=== PATIENT | male | born 1935 | race Caucasian/White ===

== ENCOUNTER → 2017-05-26 | Outpatient (CLI) | payer MEDICARE, OTHER ==
[~2017-05-26] MED LIST: ACET325 PO; ACYC800; ALLO100 PO; ALLO300; ALLO300 PO; ASPI325 PO; ASPI81CH PO; ATOR40TA PO; Amiodarone HCl200 MG PO; BILBERRY PO; CARV25 PO; CEPH500 PO; CLOP75; CLOP75 PO; CODACE30 PO; CYAN1000 PO; Coreg12.5 MG PO; Crestor20 MG PO; DIGO.125 PO; DOCU100 PO; DULO60 PO; FENO145 PO; FISH1000 PO; FOLI1 PO; FURO20 PO; GABA100 PO; GLIM2 PO; GLIM4; GLIM4 PO; HALO2 PO; HYDACE5325 PO; HYDR1TAB94 PO; LAVAP17G PO; LIDO5TP TOP; LOPE2C PO; LOSA25 PO; LOSA50 PO; MAGOXI400 PO; METF500 PO; METF500C; METO50ER; MILK THISTLE200 MG PO; MORP15ER PO; MULVITMIND PO; Milk Of Ma400 MG/5 M PO; Milk Thistle500 MG PO; Norco 5-325 Ta1 EACH PO; OLME20; OLME20 PO; PANT40 PO; PARO20; PARO20 PO; PIRO10; PIRO10 PO; POTCHL20ER PO; PROM25 PO; RAMI2.5 PO; RANI150 PO; ROSI4; ROSU10TA; ROSU10TA PO; SITA100T2 PO; SITA25T2; SITA50T2 PO; SULAR; TAMS.4ER PO; THIA100 PO; Tylenol325 MG PO; Valtrex1000 MG PO; Vitamin B Comple1 EA PO; WARF4 PO; XARELTO10 MG; XARELTO15 MG PO; XARELTO20 MG PO; Zofran Odt4 MG SL
[2017-05-26 19:06] LABS: Source, Urine Catheter
[2017-05-26 19:21] LABS: Amorphous Light (0-Heavy); Bacteria Mod /hpf; Red Blood Cells, Urine 25-50 /hpf (0-2); Squamous Epithelial Cells Mod /hpf (Few)
== END | disposition home or self-care (01) ==
LOC: LAB EV 19:03
PROVIDERS: Physician Assistant
DX: R82.99 Other abnormal findings in urine (principal)
CPT/HCPCS: 81015; 87077; 87086; 87186

== ENCOUNTER 2017-07-24 16:02 | Observation (INO) | payer MEDICARE, OTHER ==
[~2017-07-24] VITALS: Ht 180.3 cm; Wt 90.7 kg
[~2017-07-24 16:02] MED LIST changes: -Amiodarone HCl200 MG PO; -CEPH500 PO; -HYDR1TAB94 PO; -METO50ER; -Milk Of Ma400 MG/5 M PO
[2017-07-24 16:40] LABS: Calcium, Ionized (POC) 1.21 mmol/L (1.10-1.46); Chloride (POC) 104 mmol/L (98-108); Creatinine (POC) 1.2 mg/dL (0.8-1.3); Glucose (ISTAT POC) 222 mg/dL (70-99); Hemoglobin (POC) 13.3 g/dL (13.5-17.5); Potassium (POC) 4.3 mmol/L (3.5-5.5); Sodium (POC) 143 mmol/L (135-148); Total CO2 (POC) 27 mmol/L (21-32)
[2017-07-24] MEDS ORDERED: Amiodarone HCl200 MG PO (17:35)
[2017-07-25] MEDS ORDERED: ACET325 PO (17:55)
[2017-07-25] MEDS ORDERED: HYDR1TAB94 PO (17:56)
[2017-07-25] MEDS ORDERED: DOCU100 PO (17:57)
[2017-07-25] MEDS ORDERED: Milk Of Ma400 MG/5 M PO (17:58)
[2017-07-25] MEDS ORDERED: CEPH500 PO (17:59)
== END 2017-07-25 18:37 | disposition home or self-care (01) ==
LOC: ER 16:02 → SURS 16:03 → ER 17:45 → SURS 17:45
PROVIDERS: Emergency Medicine; Orthopaedic Surgery
PROC: 0X6R0Z1 Detachment at Left Middle Finger, High, Open Approach (ICD-10-PCS; 2017-07-24)
PROC: 0X6W0Z1 Detachment at Left Little Finger, High, Open Approach (ICD-10-PCS; principal; 2017-07-24 18:00)
DX: S68.117A Complete traumatic metacarpophalangeal amputation of left little finger, initial encounter (principal); I48.2 Chronic atrial fibrillation; I25.10 Atherosclerotic heart disease of native coronary artery without angina pectoris; I13.0 Hypertensive heart and chronic kidney disease with heart failure and stage 1 through stage 4 chronic kidney disease, or unspecified chronic kidney disease; E11.22 Type 2 diabetes mellitus with diabetic chronic kidney disease; N18.3 Chronic kidney disease, stage 3 (moderate); I50.9 Heart failure, unspecified; R26.9 Unspecified abnormalities of gait and mobility; R53.1 Weakness; G81.91 Hemiplegia, unspecified affecting right dominant side; K21.9 Gastro-esophageal reflux disease without esophagitis; F32.9 Major depressive disorder, single episode, unspecified; Z86.73 Personal history of transient ischemic attack (TIA), and cerebral infarction without residual deficits; Z95.0 Presence of cardiac pacemaker; Z98.890 Other specified postprocedural states; Z79.01 Long term (current) use of anticoagulants; Z79.84 Long term (current) use of oral hypoglycemic drugs; Z79.899 Other long term (current) drug therapy; Z85.51 Personal history of malignant neoplasm of bladder; Z87.891 Personal history of nicotine dependence; W31.2XXA Contact with powered woodworking and forming machines, initial encounter; Y92.89 Other specified places as the place of occurrence of the external cause; Y99.0 Civilian activity done for income or pay
CPT/HCPCS: 36415; 73120; 80047; 82947; 85014; 88300; 90471; 90714; 96374; 97110; 97162; 97530; 99285; G0378; G8978; G8979; J0690; J2250; J3010; J7030

== ENCOUNTER 2017-12-21 14:08 | Day surgery (SDC) | payer MEDICARE, OTHER ==
[~2017-12-21] VITALS: Ht 180.3 cm; Wt 86.9 kg
[~2017-12-21 14:08] MED LIST changes: +Amiodarone HCl200 MG PO; +CEPH500 PO; +HYDR1TAB94 PO; +Milk Of Ma400 MG/5 M PO
[2017-12-21] MEDS ORDERED: METO50ER (14:37)
== END 2017-12-21 16:09 | disposition home or self-care (01) ==
LOC: ORSCSDS 14:08
PROVIDERS: Internal Medicine Gastroenterology
PROC: 0DJ08ZZ Inspection of Upper Intestinal Tract, Via Natural or Artificial Opening Endoscopic (ICD-10-PCS; principal; 2017-12-21 15:15)
PROC: 0D758ZZ Dilation of Esophagus, Via Natural or Artificial Opening Endoscopic (ICD-10-PCS; principal; 2017-12-21 15:15)
DX: R13.12 Dysphagia, oropharyngeal phase (principal); K22.2 Esophageal obstruction; R05 Cough; Z95.0 Presence of cardiac pacemaker; E11.9 Type 2 diabetes mellitus without complications; I48.91 Unspecified atrial fibrillation; Z79.01 Long term (current) use of anticoagulants; Z79.82 Long term (current) use of aspirin; Z79.84 Long term (current) use of oral hypoglycemic drugs; Z79.899 Other long term (current) drug therapy
CPT/HCPCS: 82947; J2250; J7120

== ENCOUNTER 2018-05-05 14:41 | Inpatient (IN) | payer MEDICARE, OTHER ==
[~2018-05-05] VITALS: Ht 180.3 cm; Wt 84.8 kg
[~2018-05-05 14:41] MED LIST changes: -METF500C; +METF500C PO; +METO50ER PO
[2018-05-05 16:39] LABS: BASOPHILS ABSOLUTE AUTO 0.05 K/mm3 (0.00-0.23); BASOPHILS PERCENT AUTO 1 % (0-2); EOSINOPHILS ABSOLUTE AUTO 0.31 K/mm3 (0.00-0.68); EOSINOPHILS PERCENT AUTO 4 % (0-6); Hematocrit 41.5 % (37.0-53.0); Hemoglobin 13.3 g/dL (13.5-17.5); IMMATURE GRAN ABSOLUTE AUTO 0.03 K/mm3 (0.00-0.10); IMMATURE GRAN PERCENT AUTO 0 % (0-1); LYMPHOCYTES ABSOLUTE AUTO 2.68 K/mm3 (0.84-5.20); LYMPHOCYTES PERCENT AUTO 33 % (21-46); MONOCYTES ABSOLUTE AUTO 0.78 K/mm3 (0.16-1.47); MONOCYTES PERCENT AUTO 10 % (4-13); Mean Corpuscular HGB 31.3 pg (26.0-34.0); Mean Corpuscular Volume 98 fL (80-100); Mean Platelet Volume 10.5 fL (9.1-12.4); NEUTROPHILS ABSOLUTE AUTO 4.22 K/mm3 (1.96-9.15); NEUTROPHILS PERCENT AUTO 52 % (41-73); Platelet Count 252 K/mm3 (150-400); RDW Coefficient Variation 14.2 % (11.7-14.2); RDW Standard Deviation 51.1 fL (35.1-46.3); Red Blood Cell Count 4.25 M/mm3 (4.30-5.90); White Blood Cell Count 8.07 K/mm3 (4.00-11.30)
[2018-05-05 17:00] LABS: Alanine Aminotransfer (ALT/SGP 29 U/L (12-78); Albumin, Blood 3.7 g/dL (3.4-5.0); Albumin/Globulin Ratio 1.1 (0.8-1.8); Alk Phos 33 U/L (50-136); Anion Gap 6 mmol/L (6-16); Aspartate Aminotrans (AST/SGOT 23 U/L (12-37); Bilirubin, Total 0.7 mg/dL (0.1-1.0); Blood Urea Nitrogen 19 mg/dL (8-24); Bun/Creatinine Ratio 17.1 (12.0-20.0); CO2, Blood 26 mmol/L (21-32); Chloride, Blood 110 mmol/L (98-108); Creatinine, Blood 1.11 mg/dL (0.60-1.20); Globulin, Blood 3.4 g/dL (2.2-4.0); Glomerular Filtration Rate >60 (60-); Glucose, Blood 73 mg/dL (70-99); Potassium, Blood 3.8 mmol/L (3.5-5.5); Sodium, Blood 142 mmol/L (136-145); Total Protein, Blood 7.1 g/dL (6.4-8.2)
--- NOTE | 2018-05-05 22:54 | NUR ---
ASSUMING CARE OF PT. THIS RN AGREES WITH PRIOR RN ASSESSMENTS AND CHARTING.
[2018-05-06 04:35] LABS: BASOPHILS ABSOLUTE AUTO 0.06 K/mm3 (0.00-0.23); BASOPHILS PERCENT AUTO 1 % (0-2); EOSINOPHILS ABSOLUTE AUTO 0.34 K/mm3 (0.00-0.68); EOSINOPHILS PERCENT AUTO 5 % (0-6); Hematocrit 40.8 % (37.0-53.0); Hemoglobin 12.6 g/dL (13.5-17.5); IMMATURE GRAN ABSOLUTE AUTO 0.01 K/mm3 (0.00-0.10); IMMATURE GRAN PERCENT AUTO 0 % (0-1); LYMPHOCYTES ABSOLUTE AUTO 2.83 K/mm3 (0.84-5.20); LYMPHOCYTES PERCENT AUTO 38 % (21-46); MONOCYTES ABSOLUTE AUTO 0.64 K/mm3 (0.16-1.47); MONOCYTES PERCENT AUTO 9 % (4-13); Mean Corpuscular HGB 30.7 pg (26.0-34.0); Mean Corpuscular HGB Conc 30.9 g/dL (31.5-36.5); Mean Corpuscular Volume 99 fL (80-100); Mean Platelet Volume 10.5 fL (9.1-12.4); NEUTROPHILS ABSOLUTE AUTO 3.65 K/mm3 (1.96-9.15); NEUTROPHILS PERCENT AUTO 49 % (41-73); Platelet Count 240 K/mm3 (150-400); RDW Coefficient Variation 14.2 % (11.7-14.2); RDW Standard Deviation 51.5 fL (35.1-46.3); Red Blood Cell Count 4.11 M/mm3 (4.30-5.90); White Blood Cell Count 7.53 K/mm3 (4.00-11.30)
[2018-05-06 04:55] LABS: Anion Gap 6 mmol/L (6-16); Blood Urea Nitrogen 17 mg/dL (8-24); CO2, Blood 27 mmol/L (21-32); Calcium, Blood 8.7 mg/dL (8.5-10.1); Chloride, Blood 110 mmol/L (98-108); Creatinine, Blood 1.06 mg/dL (0.60-1.20); Glomerular Filtration Rate >60 (60-); Glucose, Blood 116 mg/dL (70-99); Potassium, Blood 3.8 mmol/L (3.5-5.5); Prostate Specific Antigen 0.177 ng/mL (0.000-4.000); Sodium, Blood 143 mmol/L (136-145)
--- NOTE | 2018-05-06 07:43 | NUR ---
SHIFT SUMMARY: PT A&O X 4, COOPERATIVE AND PLEASANT c CARE. C/O OF LOW BACK PAIN 1X THIS SHIFT, TREATED c 10 MG NORCO PO. EXCELLENT RELIEF PROVIDED. NO OTHER ACUTE CHANGES TO REPORT. WILL CONT TO MONITOR AND PROVIDFE CARE.
--- NOTE | 2018-05-06 17:14 | NUR ---
SHIFT SUMMARY PAIN HAS BEEN MANAGED WITH PO PAIN MEDICATION THIS SHIFT. PT HAS MINIMAL PAIN WHEN AT REST; PAIN INCREASES WITH ACTIVITY. HE IS A 2 PERSON MAX ASSIST FOR TRANFERS. PT STARTED ON STEROIDS AFTER CT RESULTS. VSS. PLAN FOR DC TO SNF WHEN PT IS READY. WILL CONTINUE TO MONITOR UNTIL REPORT TO ONCOMING RN.
--- NOTE | 2018-05-06 18:34 | NUR ---
PT HAS VOIDED X1 THIS SHIFT. PT WAS PROVIDED WITH NECTAR THICK WATER. PT ENCOURAGED TO DRINK MORE FLUIDS.
--- NOTE | 2018-05-07 06:31 | NUR ---
PT VSS T/O NIGHT. PAIN MGD PER EMAR W/REP RELIEF. PT REP PAIN JESSICA WHEN AT REST, INC W/MVMT. PT DOES SHIFT SELF IN BED, ASSISTED W/REPOSITIONING PRN T/O NIGHT. PO INTAKE ENC, FLUIDS OFFERRED W/ROUNDINGS. PT INCONTINENT, ATTENDS HCANGED PRN. PT REP HAVING UNUSUAL DREAMS, DID AWAKE CONFUSED X1, REOIRENTED EASILY. PT USING CALL LIGHT FOR ASSISTANCE, BED ALARM ON FOR SAFETY, WILL CONT TO MONITOR UNTIL REP GIVEN TO ONCOMING RN.
--- NOTE | 2018-05-07 18:45 | NUR ---
SHIFT SUMMARY PAIN HAS BEEN MANAGED WITH PO PAIN MEDICATION. PAIN DOES NOT APPEAR TO HAVE IMPROVED SINCE STEROID WAS STARTED. PT IS STILL A 2 ASSIST AND WAS UNABLE TO STAND TO GET OOB TODAY. PT TOLERATING NECTAR THICK LIQUIDS, ENCOURAGED TO TAKE FLUIDS. VSS. WILL CONTINUE TO MONITOR UNTIL REPORT TO ONCOMING RN.
--- NOTE | 2018-05-08 04:59 | NUR ---
PT VSS T/O NIGHT. PAIN MGD PER EMAR W/REP RELIEF. PT REP PAIN INC GREATLY W/MVMT. PT DOES TURN AND SHIFT SELF IN BED. PO INTAKE MINIMAL, ENC W/ROUNDING T/O NIGHT. BLADDER SCAN DOEN THIS AM; READING >525. PT DECLINING I/O CATH REQ TO WAIT UNTIL AWAKE THIS AM TO ATTEMPT TO VOID ON OWN. PT A/O THIS SHIFT IS USING CALL LIGHT FOR ASSISTANCE, BED ALARM ON FOR SAFETY. WILL CONT TO MONITOR UNTIL REP GIVEN TO ONCOMING RN.
--- NOTE | 2018-05-08 13:29 | NUR ---
DR AUSTIN HERE TO SEE PT.
--- NOTE | 2018-05-08 15:08 | NUR ---
NM REPORTS WILL COMPLETE SCAN ON TUESDAY. DR AUSTIN NOTIFIED. DISCUSSED THERAPY WITH DR MATILDE REPORTS TO CONTINUE WITH THERAPY. THERAPY NOTIFIED.
--- NOTE | 2018-05-08 18:27 | NUR ---
SHIFT SUMMARY PT EATING AND DRINKING. PT BEEN ASSISTED WITH ADL'S PRN. PT IN ATTENDS. PT HAS LIDOCAINE PATCHES TO LUMBAR. PT BEEN REPOSITIONING SELF IN BED WELL WITH ASSIST FROM STONE [employer]ODUCT FABRICATOR AND RN KIARAT TIMES TODAY. DR MUNOZ TO SEE PT. IMAGING TO BE COMPLETED TUESDAY PER IMAGING, DR AUSTIN AWARE. PT VOIDING. MED WITHOUT DIFFICULTY WHOLE WITH PUDDING PER PT REQ. ALARM IN PLACE.
--- NOTE | 2018-05-09 04:36 | NUR ---
SHIFT SUMMARY PT A&O X4 T/O SHIFT. NO ACUTE CHANGES. PT ADMITTED WITH C/O CHRONIC PAIN IN LOW BACK/HIP. PT DENIES PAIN AT RESST; LIDOCAINE PATCHES REMOVED FROM LOW BACK PER EMAR. PPPX4; EXT PWD. NO REDNESS TO SKIN NOTED. CHRONIC HEARING CARE PRACTITIONER; PT REPOSITIONED SELF IN BED; ASSISTED W/ BOOST IN BED. CALL LIGHT IN REACH. BED ALARM AND SIDE RAILS X3.
[2018-05-09 04:44] LABS: BASOPHILS ABSOLUTE AUTO 0.01 K/mm3 (0.00-0.23); BASOPHILS PERCENT AUTO 0 % (0-2); EOSINOPHILS PERCENT AUTO 0 % (0-6); Hematocrit 36.4 % (37.0-53.0); Hemoglobin 11.6 g/dL (13.5-17.5); IMMATURE GRAN ABSOLUTE AUTO 0.12 K/mm3 (0.00-0.10); IMMATURE GRAN PERCENT AUTO 1 % (0-1); LYMPHOCYTES ABSOLUTE AUTO 1.34 K/mm3 (0.84-5.20); LYMPHOCYTES PERCENT AUTO 8 % (21-46); MONOCYTES ABSOLUTE AUTO 0.82 K/mm3 (0.16-1.47); MONOCYTES PERCENT AUTO 5 % (4-13); Mean Corpuscular HGB Conc 31.9 g/dL (31.5-36.5); Mean Corpuscular Volume 97 fL (80-100); Mean Platelet Volume 10.8 fL (9.1-12.4); NEUTROPHILS PERCENT AUTO 86 % (41-73); Platelet Count 264 K/mm3 (150-400); RDW Coefficient Variation 14.3 % (11.7-14.2); RDW Standard Deviation 51.3 fL (35.1-46.3); Red Blood Cell Count 3.74 M/mm3 (4.30-5.90); White Blood Cell Count 15.89 K/mm3 (4.00-11.30)
[2018-05-09 04:58] LABS: Alanine Aminotransfer (ALT/SGP 39 U/L (12-78); Albumin, Blood 3.3 g/dL (3.4-5.0); Albumin/Globulin Ratio 1.1 (0.8-1.8); Alk Phos 36 U/L (50-136); Anion Gap 8 mmol/L (6-16); Aspartate Aminotrans (AST/SGOT 37 U/L (12-37); Bilirubin, Total 0.4 mg/dL (0.1-1.0); Blood Urea Nitrogen 28 mg/dL (8-24); CO2, Blood 26 mmol/L (21-32); Chloride, Blood 108 mmol/L (98-108); Creatinine, Blood 0.96 mg/dL (0.60-1.20); Globulin, Blood 3.1 g/dL (2.2-4.0); Glomerular Filtration Rate >60 (60-); Glucose, Blood 211 mg/dL (70-99); Magnesium, Blood 1.9 mg/dL (1.6-2.4); Phosphorus, Blood 2.2 mg/dL (2.5-4.9); Potassium, Blood 4.4 mmol/L (3.5-5.5); Sodium, Blood 142 mmol/L (136-145); Total Protein, Blood 6.4 g/dL (6.4-8.2)
--- NOTE | 2018-05-09 06:58 | NUR ---
recvd report from previous RN Radha, pt sleeping in bed, bed in lowest position, call light within reach, bed rails up x 2
--- NOTE | 2018-05-09 10:30 | NUR ---
nuclear medicine to inject pt for preparation for nuclear study at 1330
--- NOTE | 2018-05-09 11:15 | NUR ---
dr fraser to round on pt.
--- NOTE | 2018-05-09 13:20 | NUR ---
imaging to transport pt to nuclear medicine for study via stretcher, lift sheet and slider used for transfer
--- NOTE | 2018-05-09 19:06 | NUR ---
shift summary: vss, no acute changes, pt tolerated PO intake well, eating 100% of all meals and thickened liquids with no evidence of choking, swallows well. pt appeared to be napping between [id number]. pt able to assist with rolling. pt remained incontinent of bowel and bladder in attends. dr fraser rounded on pt. Physical therapy rounded, pt refused treatment. dr fraser spoke with pt and encouraged him to receive PT. pt refused pt successfully completed nuclear medicine imaging at 1330. pt received bed bath this shift. pt remained a/o x 4, pleasant/cooperative. wet attends x 3.
--- NOTE | 2018-05-10 07:52 | NUR ---
SHIFT SUMMARY: PT HAS DONE WELL THIS SHIFT. APPEARS TO BE RESTING. DENIES PAIN AND REFUSES PAIN MEDICATION. PT ABLE TO REPOSITION SELF IN BED. ATTENDS CHANGED ONCE. NO CONCERNS AT THIS TIME.
--- NOTE | 2018-05-10 14:11 | NUR ---
DR. WELSH NOTIFIED THAT DR. MICHAELS IS UNAVALIABLE TO CONSULT UNTIL 05/16/18. AT THIS TIME OK TO TRANSFER TO SNF AND FOLLOW-UP OUTPATIENT PER DR. WELSH. WILL ATTEMPT TO ARRANGE APPOINTMENT WITH DR. MICHAELS.
--- NOTE | 2018-05-10 14:22 | NUR ---
APPOINTMENT ARRANGED WITH DR. MICHAELS FOR 05/16/18 AT 0850 WITH 0820 ARRIVAL TIME. WILL REPORT TO [facility].
--- NOTE | 2018-05-10 16:55 | NUR ---
PT GIVEN BOWEL CARE PRIOR TO DISCHARGE. VSS. PT DISCHARGED WITH [facility] AT 1638. ATTENDS CLEAN AND DRY. PAIN MEDICATION WAS PROVIDED PRIOR TO DISCHARGE. ATTEMPTED TO CALL REPORT PRIOR TO DISCHARGE, UNABLE TO REACH RN. REPORT WAS GIVEN AT 1646 TO AMY AT [facility].
[2018-06-14] MEDS ORDERED: ATOR40TA PO (16:10)
[2018-06-14] MEDS ORDERED: CYAN500 PO (16:11)
[2018-06-14] MEDS ORDERED: PANT40 PO (16:11)
[2018-06-14] MEDS ORDERED: Hair, Skin & N1 EACH PO (16:11)
[2018-06-14] MEDS ORDERED: MILK THISTLE140 MG PO (16:12)
[2018-06-14] MEDS ORDERED: BILBERRY80 MG PO (16:12)
[2018-06-14] MEDS ORDERED: FENO145 PO (16:13)
[2018-06-14] MEDS ORDERED: HYDR1TAB94 PO (16:13)
[2018-06-14] MEDS ORDERED: RANITIDINE PO (16:14)
[2018-06-14] MEDS ORDERED: RANITIDINE (16:14)
[2018-06-14] MEDS ORDERED: FISH OIL 1,0001 EAC1 PO (16:14)
== END 2018-05-10 16:48 | DRG 552 ==
LOC: ER 14:41 → SURS 18:20 → ER 20:15 → SURS 20:50
PROVIDERS: Emergency Medicine; Hospitalist; ADMIT Family Medicine
DX: M48.061 Spinal stenosis, lumbar region without neurogenic claudication (principal); I50.22 Chronic systolic (congestive) heart failure; I69.354 Hemiplegia and hemiparesis following cerebral infarction affecting left non-dominant side; I48.2 Chronic atrial fibrillation; I11.0 Hypertensive heart disease with heart failure; I25.5 Ischemic cardiomyopathy; E78.5 Hyperlipidemia, unspecified; F10.20 Alcohol dependence, uncomplicated; I69.320 Aphasia following cerebral infarction; Z79.01 Long term (current) use of anticoagulants; Z23 Encounter for immunization
CPT/HCPCS: 23350; 36415; 72100; 72131; 72170; 78306; 80048; 80053; 82947; 83735; 84100; 85025; 90686; 96361; 96374; 97110; 97162; 97530; 99284-25; A9270; A9561; G0008; G0103; G8978; G8979; J1170; J2930; J7030

== ENCOUNTER 2018-05-14 06:24 | Emergency (ER) | payer MEDICARE, OTHER ==
[~2018-05-14] VITALS: Ht 175.3 cm; Wt 79.4 kg
[2018-05-14] MEDS ORDERED: GABA300 PO (06:44)
[2018-05-14] MEDS ORDERED: OXYC5 PO (06:45)
[2018-05-14 07:15] LABS: Calcium, Ionized (POC) 1.23 mmol/L (1.10-1.46); Chloride (POC) 101 mmol/L (98-108); Creatinine (POC) 0.9 mg/dL (0.8-1.3); Glucose (ISTAT POC) 160 mg/dL (70-99); Hemoglobin (POC) 11.9 g/dL (13.5-17.5); Sodium (POC) 141 mmol/L (135-148); Total CO2 (POC) 26 mmol/L (21-32)
[2018-06-14] MEDS ORDERED: ATOR40TA PO (16:10)
[2018-06-14] MEDS ORDERED: Hair, Skin & N1 EACH PO (16:11)
[2018-06-14] MEDS ORDERED: PANT40 PO (16:11)
[2018-06-14] MEDS ORDERED: CYAN500 PO (16:11)
[2018-06-14] MEDS ORDERED: MILK THISTLE140 MG PO (16:12)
[2018-06-14] MEDS ORDERED: BILBERRY80 MG PO (16:12)
[2018-06-14] MEDS ORDERED: FENO145 PO (16:13)
[2018-06-14] MEDS ORDERED: HYDR1TAB94 PO (16:13)
[2018-06-14] MEDS ORDERED: RANITIDINE (16:14)
[2018-06-14] MEDS ORDERED: RANITIDINE PO (16:14)
[2018-06-14] MEDS ORDERED: FISH OIL 1,0001 EAC1 PO (16:14)
== END 2018-05-14 09:51 | disposition home or self-care (01) ==
LOC: ER 06:24
PROVIDERS: Emergency Medicine
DX: R31.9 Hematuria, unspecified (principal); Z79.899 Other long term (current) drug therapy; Z79.82 Long term (current) use of aspirin; Z79.891 Long term (current) use of opiate analgesic; Z86.73 Personal history of transient ischemic attack (TIA), and cerebral infarction without residual deficits; I48.91 Unspecified atrial fibrillation; I13.0 Hypertensive heart and chronic kidney disease with heart failure and stage 1 through stage 4 chronic kidney disease, or unspecified chronic kidney disease; I50.9 Heart failure, unspecified; E11.22 Type 2 diabetes mellitus with diabetic chronic kidney disease; N18.9 Chronic kidney disease, unspecified; K21.9 Gastro-esophageal reflux disease without esophagitis
CPT/HCPCS: 80047; 85014; 99283

== ENCOUNTER 2018-06-01 13:30 | Day surgery (SDC) | payer MEDICARE, OTHER ==
[~2018-06-01 13:30] MED LIST changes: +GABA300 PO; +OXYC5 PO
[2018-06-14] MEDS ORDERED: ATOR40TA PO (16:10)
[2018-06-14] MEDS ORDERED: Hair, Skin & N1 EACH PO (16:11)
[2018-06-14] MEDS ORDERED: PANT40 PO (16:11)
[2018-06-14] MEDS ORDERED: CYAN500 PO (16:11)
[2018-06-14] MEDS ORDERED: BILBERRY80 MG PO (16:12)
[2018-06-14] MEDS ORDERED: MILK THISTLE140 MG PO (16:12)
[2018-06-14] MEDS ORDERED: HYDR1TAB94 PO (16:13)
[2018-06-14] MEDS ORDERED: FENO145 PO (16:13)
[2018-06-14] MEDS ORDERED: RANITIDINE PO (16:14)
[2018-06-14] MEDS ORDERED: RANITIDINE (16:14)
[2018-06-14] MEDS ORDERED: FISH OIL 1,0001 EAC1 PO (16:14)
== END 2018-06-01 22:49 | disposition home or self-care (01) ==
LOC: RAD 13:30
DX: M75.121 Complete rotator cuff tear or rupture of right shoulder, not specified as traumatic (principal)
CPT/HCPCS: 20610; 73201; 77002; Q9967

== ENCOUNTER 2018-06-10 19:34 | Emergency (ER) | payer MEDICARE, OTHER ==
[~2018-06-10] VITALS: Ht 180.3 cm; Wt 88.5 kg
[2018-06-10 20:50] LABS: BASOPHILS ABSOLUTE AUTO 0.05 K/mm3 (0.00-0.23); BASOPHILS PERCENT AUTO 1 % (0-2); EOSINOPHILS ABSOLUTE AUTO 0.25 K/mm3 (0.00-0.68); EOSINOPHILS PERCENT AUTO 2 % (0-6); Hematocrit 37.9 % (37.0-53.0); Hemoglobin 11.7 g/dL (13.5-17.5); IMMATURE GRAN ABSOLUTE AUTO 0.06 K/mm3 (0.00-0.10); IMMATURE GRAN PERCENT AUTO 1 % (0-1); LYMPHOCYTES ABSOLUTE AUTO 1.15 K/mm3 (0.84-5.20); LYMPHOCYTES PERCENT AUTO 11 % (21-46); MONOCYTES ABSOLUTE AUTO 0.86 K/mm3 (0.16-1.47); MONOCYTES PERCENT AUTO 8 % (4-13); Mean Corpuscular HGB 30.8 pg (26.0-34.0); Mean Corpuscular HGB Conc 30.9 g/dL (31.5-36.5); Mean Corpuscular Volume 100 fL (80-100); Mean Platelet Volume 10.8 fL (9.1-12.4); NEUTROPHILS ABSOLUTE AUTO 8.25 K/mm3 (1.96-9.15); NEUTROPHILS PERCENT AUTO 78 % (41-73); Platelet Count 221 K/mm3 (150-400); RDW Coefficient Variation 13.9 % (11.7-14.2); RDW Standard Deviation 49.9 fL (35.1-46.3); White Blood Cell Count 10.62 K/mm3 (4.00-11.30)
[2018-06-10 21:05] LABS: Alanine Aminotransfer (ALT/SGP 38 U/L (12-78); Albumin, Blood 3.2 g/dL (3.4-5.0); Albumin/Globulin Ratio 0.9 (0.8-1.8); Alk Phos 79 U/L (50-136); Anion Gap 8 mmol/L (6-16); Aspartate Aminotrans (AST/SGOT 23 U/L (12-37); Bilirubin, Total 0.7 mg/dL (0.1-1.0); Blood Urea Nitrogen 17 mg/dL (8-24); Bun/Creatinine Ratio 17.6 (12.0-20.0); CO2, Blood 25 mmol/L (21-32); Chloride, Blood 108 mmol/L (98-108); Creatinine, Blood 0.97 mg/dL (0.60-1.20); Globulin, Blood 3.7 g/dL (2.2-4.0); Glomerular Filtration Rate >60 (60-); Glucose, Blood 195 mg/dL (70-99); Potassium, Blood 4.6 mmol/L (3.5-5.5); Sodium, Blood 141 mmol/L (136-145); Total Protein, Blood 6.9 g/dL (6.4-8.2)
[2018-06-10 23:11] LABS: Source, Urine Catheter
[2018-06-10 23:14] LABS: Bilirubin, Urine Neg (Neg); Blood, Urine 5+ (Neg); Glucose Qualitative, Urine Neg (Neg); Ketones, Urine Neg (Neg); Leukocyte Esterase, Urine 1+ (Neg); Nitrite, Urine Neg (Neg); Protein, Urine 2+ (Neg); Specific Gravity, Urine 1.015 (1.003-1.022); Urobilinogen, Urine NORM (Normal)
[2018-06-10 23:20] LABS: Appearance, Urine Cloudy (Clear); Color, Urine Yellow (P-Yellow)
[2018-06-10 23:21] LABS: Red Blood Cells, Urine 50-100 /hpf (0-2); Squamous Epithelial Cells Rare /hpf (Few); White Blood Cells, Urine 0-2 /hpf (0-5)
[2018-06-10 23:22] LABS: Amorphous Light (0-Heavy); Bacteria Mod /hpf
[2018-06-11] MEDS ORDERED: Roxicodone5 MG PO (00:35)
[2018-06-14] MEDS ORDERED: ATOR40TA PO (16:10)
[2018-06-14] MEDS ORDERED: Hair, Skin & N1 EACH PO (16:11)
[2018-06-14] MEDS ORDERED: CYAN500 PO (16:11)
[2018-06-14] MEDS ORDERED: PANT40 PO (16:11)
[2018-06-14] MEDS ORDERED: BILBERRY80 MG PO (16:12)
[2018-06-14] MEDS ORDERED: MILK THISTLE140 MG PO (16:12)
[2018-06-14] MEDS ORDERED: FENO145 PO (16:13)
[2018-06-14] MEDS ORDERED: HYDR1TAB94 PO (16:13)
[2018-06-14] MEDS ORDERED: RANITIDINE (16:14)
[2018-06-14] MEDS ORDERED: FISH OIL 1,0001 EAC1 PO (16:14)
[2018-06-14] MEDS ORDERED: RANITIDINE PO (16:14)
== END 2018-06-11 01:29 | disposition home or self-care (01) ==
LOC: ER 19:34
PROVIDERS: Physician Assistant
DX: N13.2 Hydronephrosis with renal and ureteral calculous obstruction (principal); Z79.899 Other long term (current) drug therapy; Z79.84 Long term (current) use of oral hypoglycemic drugs; Z79.82 Long term (current) use of aspirin; Z86.73 Personal history of transient ischemic attack (TIA), and cerebral infarction without residual deficits; I48.91 Unspecified atrial fibrillation; E11.22 Type 2 diabetes mellitus with diabetic chronic kidney disease; K21.9 Gastro-esophageal reflux disease without esophagitis; F32.9 Major depressive disorder, single episode, unspecified; I13.0 Hypertensive heart and chronic kidney disease with heart failure and stage 1 through stage 4 chronic kidney disease, or unspecified chronic kidney disease; I50.9 Heart failure, unspecified; N18.9 Chronic kidney disease, unspecified
CPT/HCPCS: 36415; 51701; 74176; 80053; 81001; 85025; 87086; 96361; 96374; 99284-25; J2270; J7030

== ENCOUNTER 2018-06-18 16:14 | Emergency (ER) | payer MEDICARE, OTHER ==
[~2018-06-18] VITALS: Ht 180.3 cm; Wt 88.5 kg
[~2018-06-18 16:14] MED LIST changes: +BILBERRY80 MG PO; +CYAN500 PO; +FISH OIL 1,0001 EAC1 PO; +Hair, Skin & N1 EACH PO; +MILK THISTLE140 MG PO; +RANITIDINE; +RANITIDINE PO; +Roxicodone5 MG PO
[2018-06-18 17:10] LABS: BASOPHILS ABSOLUTE AUTO 0.05 K/mm3 (0.00-0.23); BASOPHILS PERCENT AUTO 1 % (0-2); EOSINOPHILS PERCENT AUTO 3 % (0-6); Hematocrit 35.7 % (37.0-53.0); Hemoglobin 11.2 g/dL (13.5-17.5); IMMATURE GRAN ABSOLUTE AUTO 0.06 K/mm3 (0.00-0.10); IMMATURE GRAN PERCENT AUTO 1 % (0-1); LYMPHOCYTES ABSOLUTE AUTO 1.58 K/mm3 (0.84-5.20); LYMPHOCYTES PERCENT AUTO 14 % (21-46); MONOCYTES ABSOLUTE AUTO 1.02 K/mm3 (0.16-1.47); MONOCYTES PERCENT AUTO 9 % (4-13); Mean Corpuscular HGB 30.4 pg (26.0-34.0); Mean Corpuscular HGB Conc 31.4 g/dL (31.5-36.5); Mean Platelet Volume 10.6 fL (9.1-12.4); NEUTROPHILS ABSOLUTE AUTO 8.02 K/mm3 (1.96-9.15); NEUTROPHILS PERCENT AUTO 73 % (41-73); Platelet Count 251 K/mm3 (150-400); RDW Coefficient Variation 13.7 % (11.7-14.2); RDW Standard Deviation 48.7 fL (35.1-46.3); Red Blood Cell Count 3.68 M/mm3 (4.30-5.90); White Blood Cell Count 11.03 K/mm3 (4.00-11.30)
[2018-06-18] MEDS ORDERED: GABA300 PO (17:11)
[2018-06-18 17:13] LABS: Mean Corpuscular Volume 97 fL (80-100)
[2018-06-18 17:35] LABS: Alanine Aminotransfer (ALT/SGP 28 U/L (12-78); Albumin, Blood 3.3 g/dL (3.4-5.0); Albumin/Globulin Ratio 0.8 (0.8-1.8); Alk Phos 83 U/L (50-136); Anion Gap 6 mmol/L (6-16); Aspartate Aminotrans (AST/SGOT 15 U/L (12-37); Bilirubin, Total 0.7 mg/dL (0.1-1.0); Blood Urea Nitrogen 14 mg/dL (8-24); Bun/Creatinine Ratio 16.4 (12.0-20.0); CO2, Blood 28 mmol/L (21-32); Calcium, Blood 8.6 mg/dL (8.5-10.1); Chloride, Blood 106 mmol/L (98-108); Creatinine, Blood 0.85 mg/dL (0.60-1.20); Glomerular Filtration Rate >60 (60-); Glucose, Blood 148 mg/dL (70-99); Sodium, Blood 140 mmol/L (136-145); Total Protein, Blood 7.3 g/dL (6.4-8.2)
[2018-06-18] MEDS ORDERED: Lasix20 MG PO (17:44)
== END 2018-06-18 18:24 | disposition home or self-care (01) ==
LOC: ER 16:14
PROVIDERS: Emergency Medicine
DX: I13.0 Hypertensive heart and chronic kidney disease with heart failure and stage 1 through stage 4 chronic kidney disease, or unspecified chronic kidney disease (principal); E11.22 Type 2 diabetes mellitus with diabetic chronic kidney disease; N18.9 Chronic kidney disease, unspecified; I50.9 Heart failure, unspecified; Z88.5 Allergy status to narcotic agent; Z79.899 Other long term (current) drug therapy; Z79.82 Long term (current) use of aspirin; I48.91 Unspecified atrial fibrillation
CPT/HCPCS: 36415; 71046; 80053; 85025; 99284-25

== ENCOUNTER 2018-09-06 14:08 | Inpatient (IN) | payer MEDICARE, OTHER ==
[~2018-09-06] VITALS: Ht 182.9 cm; Wt 84.5 kg
[~2018-09-06 14:08] MED LIST changes: -ASPI81CH PO; +Aspirin EC81 MG PO; +Lasix20 MG PO; -METF500C PO; -MILK THISTLE140 MG PO; +Metformin HCl1000 MG PO
[2018-09-06 14:41] LABS: BASOPHILS ABSOLUTE AUTO 0.06 K/mm3 (0.00-0.23); BASOPHILS PERCENT AUTO 1 % (0-2); EOSINOPHILS ABSOLUTE AUTO 0.21 K/mm3 (0.00-0.68); EOSINOPHILS PERCENT AUTO 2 % (0-6); Hematocrit 34.6 % (37.0-53.0); Hemoglobin 10.8 g/dL (13.5-17.5); IMMATURE GRAN ABSOLUTE AUTO 0.04 K/mm3 (0.00-0.10); IMMATURE GRAN PERCENT AUTO 0 % (0-1); LYMPHOCYTES ABSOLUTE AUTO 1.69 K/mm3 (0.84-5.20); LYMPHOCYTES PERCENT AUTO 17 % (21-46); MONOCYTES ABSOLUTE AUTO 0.85 K/mm3 (0.16-1.47); MONOCYTES PERCENT AUTO 9 % (4-13); Mean Corpuscular HGB 29.8 pg (26.0-34.0); Mean Corpuscular HGB Conc 31.2 g/dL (31.5-36.5); Mean Corpuscular Volume 96 fL (80-100); Mean Platelet Volume 10.6 fL (9.1-12.4); NEUTROPHILS ABSOLUTE AUTO 7.18 K/mm3 (1.96-9.15); NEUTROPHILS PERCENT AUTO 72 % (41-73); Platelet Count 280 K/mm3 (150-400); RDW Coefficient Variation 14.9 % (11.7-14.2); Red Blood Cell Count 3.62 M/mm3 (4.30-5.90); White Blood Cell Count 10.03 K/mm3 (4.00-11.30)
[2018-09-06] MEDS ORDERED: FENO145 PO (14:51)
[2018-09-06 15:04] LABS: Alanine Aminotransfer (ALT/SGP 25 U/L (12-78); Albumin, Blood 3.4 g/dL (3.4-5.0); Alk Phos 51 U/L (50-136); Anion Gap 4 mmol/L (6-16); Aspartate Aminotrans (AST/SGOT 28 U/L (12-37); Bilirubin, Total 0.8 mg/dL (0.1-1.0); Blood Urea Nitrogen 18 mg/dL (8-24); Bun/Creatinine Ratio 17.5 (12.0-20.0); CO2, Blood 27 mmol/L (21-32); Calcium, Blood 8.6 mg/dL (8.5-10.1); Chloride, Blood 108 mmol/L (98-108); Creatinine, Blood 1.03 mg/dL (0.60-1.20); Globulin, Blood 3.4 g/dL (2.2-4.0); Glomerular Filtration Rate >60 (60-); Glucose, Blood 129 mg/dL (70-99); Potassium, Blood 3.8 mmol/L (3.5-5.5); Sodium, Blood 139 mmol/L (136-145); Total Protein, Blood 6.8 g/dL (6.4-8.2); Troponin I 0.049 ng/mL (0.000-0.040)
[2018-09-06 15:23] LABS: International Normalized Ratio 1.24; Prothrombin Time Results 12.9 Sec (9.7-11.5)
[2018-09-06 15:38] LABS: Bilirubin, Urine Neg (Neg); Blood, Urine Neg (Neg); Glucose Qualitative, Urine 1+ (Neg); Ketones, Urine 1+ (Neg); Leukocyte Esterase, Urine Neg (Neg); Nitrite, Urine Neg (Neg); Protein, Urine 1+ (Neg); Urobilinogen, Urine NORM (Normal)
[2018-09-06 15:57] LABS: Appearance, Urine Clear (Clear); Color, Urine Yellow (P-Yellow)
[2018-09-06] MEDS ORDERED: ATOR40TA PO (16:09)
[2018-09-06] MEDS ORDERED: Milk Thistle500 MG PO (16:36)
[2018-09-06] MEDS ORDERED: THERA1 EACH PO (16:36)
[2018-09-06] MEDS ORDERED: BILBERRY PO (16:40)
--- NOTE | 2018-09-06 23:08 | NUR ---
CHANGE IN PT STATUS PATCHER HELPER CALLED ME INTO ROOM & PT WAS DIAPHORETIC, CLAMMY, COOL. RECHECKED VITALS & BP HAD INCREASED TO 179/88 & CBG HAD INCREASED TO 222. PT SHOOK HEAD NO TO ANY PAIN OR NAUSEA. PER TELE PT WAS 100% PACED W/HR IN 60'S. NOTIFIED CHARGE NURSE GEM TILLEY & I WILL CONTINUE TO MONITOR.
--- NOTE | 2018-09-07 03:17 | NUR ---
Patient continues to be very diaphoretic. He does nod yes to lung pain. Pt vital signs have remained stable. Respiratory rate is 16, O2 sats 96% on room air. Pt does have episodes of severe snoring that comes and goes. Head of bed elevated with freq monitoring. Respiratory therapy called up to assess pt respiratory status. She assessed pt, unable to pin point specific problem. He started deep snoring while she was at bedside. She used jaw lift to open airway and snoring stopped. Blood sugar rechecked and it was 173. Call made to Dr. Martin and pt update given of above information. Pt to be transferred to ICU rm 8. Pt is a full code. Attempts made to call Renee, simple message left.
[2018-09-07 03:47] LABS: Mean Corpuscular HGB 29.4 pg (26.0-34.0); Mean Corpuscular HGB Conc 31.4 g/dL (31.5-36.5); Mean Corpuscular Volume 94 fL (80-100); Mean Platelet Volume 10.3 fL (9.1-12.4); Platelet Count 278 K/mm3 (150-400); RDW Coefficient Variation 15.3 % (11.7-14.2); RDW Standard Deviation 52.3 fL (35.1-46.3); Red Blood Cell Count 3.74 M/mm3 (4.30-5.90); White Blood Cell Count 11.06 K/mm3 (4.00-11.30)
--- NOTE | 2018-09-07 04:09 | NUR ---
ASSUMED CARE OF PT PT TO ICU 8 FROM MEDICAL FLOOR PER DR. MOSS ORDER. REPORT RCV'D FROM GEM FUNEZ. PT ARRIVES TO ICU VIA STRETCHER APPEARING EXTREMELY DIAPHORETIC. 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 PT SATS AT 95% ON ROOM AIR ALTHOUGH PT OCCASIONALLY SOUNDS LIKE HE IS "SNORING" WHILE AWAKE. 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 PLEASE SEE FULL SHIFT ASSESSMENT.
[2018-09-07 04:10] LABS: Alanine Aminotransfer (ALT/SGP 24 U/L (12-78); Albumin, Blood 3.4 g/dL (3.4-5.0); Alk Phos 53 U/L (50-136); Anion Gap 5 mmol/L (6-16); Aspartate Aminotrans (AST/SGOT 21 U/L (12-37); Bilirubin, Total 0.6 mg/dL (0.1-1.0); Blood Urea Nitrogen 17 mg/dL (8-24); CO2, Blood 27 mmol/L (21-32); CPK Creatine Kinase 77 U/L (39-308); Calcium, Blood 8.7 mg/dL (8.5-10.1); Chloride, Blood 112 mmol/L (98-108); Creatine Kinase MB 2.8 ng/mL (0.0-3.6); Creatine Kinase MB Index 3.6 (0.0-4.0); Globulin, Blood 3.5 g/dL (2.2-4.0); Glomerular Filtration Rate >60 (60-); Glucose, Blood 154 mg/dL (70-99); Potassium, Blood 3.8 mmol/L (3.5-5.5); Sodium, Blood 144 mmol/L (136-145); Total Protein, Blood 6.9 g/dL (6.4-8.2); Troponin I 0.172 ng/mL (0.000-0.040)
--- NOTE | 2018-09-07 10:48 | NUR ---
0815-[facility] DR LAWSON IN TO VISIT WITH PT RE FEEDING TUBE ISSUES. PT IS CURRENTLY AGGREEING TO HAVE NG FEEDING TUBE PLACE AND THE QUESTION OF [facility] FEEDING TUBE WAS INTRODUCED. PT IS NON-VERBAL BUT HEARING AND UNDERSTANDING IS GOOD WITH APPROP. NODDING OF THE HEAD TO ANSWER VARRIOUS QUESTIONS RE CURRENT AND FUTURE CARE. PT INCONT OF URINE, SKIN IS INTACT.
--- NOTE | 2018-09-07 12:02 | NUR ---
REPORT CALLED EARLIER TO BLAYNE FUNEZ. DOBHOFF PLACE AND POSITION CONFIRMED PER RADIOLOGY WITH TUBE AT 70 CM AT THE NARE AND SECURED. WILL TRANFER PT VIA BED ON TELE TO 334. PT TOLERATED DOBHOFF PLACEMENT WELL.
--- NOTE | 2018-09-07 12:52 | NUR ---
TRANSFER PT HERE FROM ICU AROUND NOON, DOBHOFF IN PLACE TO THE R NOSTRIL, 70 CM AT THE NARES, TUBE FEEDING STARTED AT NOON PER DIETARY ORDERS, 25CC/HR FOR 8 HOURS AND ADVANCE TO GOAL OF 70, FLUSHES OF 100 CC H20 Q4H STARTED AT NOON WELL, PT WITH R SIDE FLACCID, L SIDE RANDOMLY FOLLOWS COMMANDS, TELE BOX CONFIRMED PT 100% PACED AT 65
--- NOTE | 2018-09-07 17:03 | NUR ---
TELE NOTIFIED BY TELE MONITOR PT'S HR UP TO THE 120'S-130'S FOR A BRIEF MOMENT, THEN BACK TO PACED AT 65, PT'S IN VISITING AT THIS TIME
--- NOTE | 2018-09-07 17:42 | NUR ---
SUMMARY PT AWAKE IN BED VISITING WITH HIS FAMILY, PT HAS BEEN NONVERBAL, OCC MOVING HIS LEFT ARM, WILL MOVE HIS L FOOT ON COMMAND WEAKLY AND GROSS MOVEMENT TO THE R LEG AND BARELY PERCEPTIBLE MOVEMENT OF THE R ARM, PT IS ON TUBE FEEDING PER DIETARY AND IS TOLERATING THEM WELL, WILL CONT TO MONITOR
[2018-09-08 05:09] LABS: BASOPHILS ABSOLUTE AUTO 0.04 K/mm3 (0.00-0.23); BASOPHILS PERCENT AUTO 0 % (0-2); EOSINOPHILS ABSOLUTE AUTO 0.22 K/mm3 (0.00-0.68); EOSINOPHILS PERCENT AUTO 2 % (0-6); Hematocrit 34.4 % (37.0-53.0); Hemoglobin 10.8 g/dL (13.5-17.5); IMMATURE GRAN ABSOLUTE AUTO 0.02 K/mm3 (0.00-0.10); IMMATURE GRAN PERCENT AUTO 0 % (0-1); LYMPHOCYTES ABSOLUTE AUTO 2.07 K/mm3 (0.84-5.20); LYMPHOCYTES PERCENT AUTO 21 % (21-46); MONOCYTES ABSOLUTE AUTO 1.04 K/mm3 (0.16-1.47); MONOCYTES PERCENT AUTO 11 % (4-13); Mean Corpuscular HGB 29.1 pg (26.0-34.0); Mean Corpuscular HGB Conc 31.4 g/dL (31.5-36.5); Mean Corpuscular Volume 93 fL (80-100); Mean Platelet Volume 10.5 fL (9.1-12.4); NEUTROPHILS ABSOLUTE AUTO 6.39 K/mm3 (1.96-9.15); NEUTROPHILS PERCENT AUTO 65 % (41-73); Platelet Count 293 K/mm3 (150-400); RDW Coefficient Variation 15.3 % (11.7-14.2); RDW Standard Deviation 52.6 fL (35.1-46.3); Red Blood Cell Count 3.71 M/mm3 (4.30-5.90); White Blood Cell Count 9.78 K/mm3 (4.00-11.30)
[2018-09-08 05:48] LABS: Magnesium, Blood 1.9 mg/dL (1.6-2.4)
[2018-09-08 05:53] LABS: Alanine Aminotransfer (ALT/SGP 38 U/L (12-78); Albumin, Blood 3.2 g/dL (3.4-5.0); Alk Phos 56 U/L (50-136); Anion Gap 6 mmol/L (6-16); Aspartate Aminotrans (AST/SGOT 56 U/L (12-37); Bilirubin, Total 0.4 mg/dL (0.1-1.0); Blood Urea Nitrogen 15 mg/dL (8-24); Bun/Creatinine Ratio 17.5 (12.0-20.0); CO2, Blood 23 mmol/L (21-32); Calcium, Blood 8.7 mg/dL (8.5-10.1); Chloride, Blood 112 mmol/L (98-108); Creatinine, Blood 0.86 mg/dL (0.60-1.20); Globulin, Blood 3.2 g/dL (2.2-4.0); Glomerular Filtration Rate >60 (60-); Glucose, Blood 181 mg/dL (70-99); Phosphorus, Blood 2.7 mg/dL (2.5-4.9); Potassium, Blood 3.9 mmol/L (3.5-5.5); Sodium, Blood 141 mmol/L (136-145); Total Protein, Blood 6.4 g/dL (6.4-8.2)
--- NOTE | 2018-09-08 06:37 | NUR ---
SHIFT SUMMARY PT SLEPT WELL T/O NIGHT. ALERT, OPENS EYES TO SOUND. NON-VERBAL, WILL NOD HEAD YES/NO FOR QUESTIONS, IS SLOW TO RESPOND @TIMES. VSS. DENIES NAUSEA, SOB OR PAIN. UNABLE TO MOVE RIGHT SIDE & HAS SOME LEFT SIDE WEAKNESS BUT IS ABLE TO SLOT SHIFT SUPERVISOR W/L. HAND & WIGGLE LEFT FOOT. INCONTINENT OF URINE, CHANGED & REPOSITIONED PRN. DOBHOFF IS PATENT & RUNNING @55 ML/HR, RATE WAS LAST INCREASED @0500 THIS AM. CBG HAS BEEN CHECKED Q6 DUE TO CONTINUOUS FEEDING. PT HAS BEEN COOL HOWEVER, NOT DIAPHORETIC SINCE BEGINNING OF SHIFT. CALL LIGHT IS IN REACH.
--- NOTE | 2018-09-08 18:34 | NUR ---
SHIFT SUMMARY PTS IV CAME OUT WHEN WE CHANGED HIS BRIEF. PTS CAME TO VISIT TWICE THIS SHIFT. PT HAS SEEN PT,OT, AND SPEECH THERAPY THIS SHIFT. HE APPEARED ANXIOUS EARLIER IN THE SHIFT WE FOUND THAT HE WANTED TO BE SUCTIONED. HE WAS ABLE TO SUCTION HIMSELF A LITTLE WITH HIS L HAND, THIS APPEARED TO HELP HIS ANXIETY.
[2018-09-09 05:46] LABS: Phosphorus, Blood 2.8 mg/dL (2.5-4.9)
--- NOTE | 2018-09-09 06:18 | NUR ---
responds with head movement to questions, call light in reach, saline locked, room air, pump running at 70mlh, frequent repositioning and changeing, blood sugar checked q6 as scheduled, will continue to monitor and treat until successfully transfered to day nurse, enjoyed warm blankets
--- NOTE | 2018-09-09 08:23 | NUR ---
VERY WEAK SECURITY SALES CONSULTANT LEFT HAND. NO RESPONSE WITH RT HAND. WEAK PUSH LEFT FOOT, NO PULL. NO RESPONSE RT FOOT. DOES NOT STICK TONGUE OUT OR SMILE WHEN ASKED TO.
[2018-09-09 09:10] LABS: Anion Gap 8 mmol/L (6-16); Blood Urea Nitrogen 16 mg/dL (8-24); Bun/Creatinine Ratio 18.2 (12.0-20.0); CO2, Blood 23 mmol/L (21-32); Chloride, Blood 111 mmol/L (98-108); Creatinine, Blood 0.88 mg/dL (0.60-1.20); Glomerular Filtration Rate >60 (60-); Glucose, Blood 219 mg/dL (70-99); Potassium, Blood 4.2 mmol/L (3.5-5.5); Sodium, Blood 142 mmol/L (136-145)
--- NOTE | 2018-09-09 18:14 | NUR ---
DOBHOFF IN PLACE WITH FEEDING RUNNING AT 70 ML/HR AND WATER AT 100 ML Q 4 HOURS. LEFT SIDED FACIAL DROOP. WEAK LEFT SPORTS COMMENTATOR AND LEFT FOOT PUSH. ABLE TO PICK LT LEG UP VERY SLIGHTLY. NO RESPONSE FROM RT ARM . GROSS MOVEMENT RT LEG. NONVERBAL. TELE ON AND PACED. WAS DIAPHROETIC FOR SHORT TIME EARLIER. DIFFICULT FOR PATIENT TO MAKE NEEDS KNOWN. WCTM
[2018-09-10 05:50] LABS: Phosphorus, Blood 2.9 mg/dL (2.5-4.9)
[2018-09-10 05:57] LABS: Anion Gap 7 mmol/L (6-16); Blood Urea Nitrogen 21 mg/dL (8-24); Bun/Creatinine Ratio 24.4 (12.0-20.0); CO2, Blood 26 mmol/L (21-32); Chloride, Blood 111 mmol/L (98-108); Creatinine, Blood 0.86 mg/dL (0.60-1.20); Glomerular Filtration Rate >60 (60-); Glucose, Blood 207 mg/dL (70-99); Sodium, Blood 144 mmol/L (136-145)
--- NOTE | 2018-09-10 07:27 | NUR ---
tube feeding running, call light in reach but unutilized, frequent checks and turns, saline locked
--- NOTE | 2018-09-10 19:09 | NUR ---
SLEEPING MOST OF MORNING. ALERT TO SELF. NUTRITION INFUSING IN DOBHOFF. IV PATENT. ABLE TO WIGGLE TOES LEFT SIDE. NO MOVEMENT RT SIDE EITHER EXTREMITY. RAISES EYEBROWS TO COMMAND. TURNED Q 2 HOURS. UNLABORED RESPIRATIONS. REPORT TO NIGHT RN
--- NOTE | 2018-09-11 05:06 | NUR ---
VSS, AFEBRILE, MORE ALERT, MAKES DIRECT EYE CONTACT, EYES TRACH TO ACTIVITY, PT RAISES HIS EYEBROWS TO INDICATE "YES" BUT ONLY MAKES LOUD YAWNING NOISES AND GRUNTS WITH HIS VOICE. NO COMPLAINTS. TUBE FEEDING PROGRESSING PER ORDER. CBG'S Q 6 HRS PER ORDER. WILL REPORT TO ON-COMING SHIFT.
--- NOTE | 2018-09-11 05:38 | NUR ---
DURING MORNING CARES PT STARTED TO RUB ON HIS EPIGASTRIC AREA. WHEN ASKED IF HE IS IN PAIN, PT RAISED HIS EYE BROWS AND NODDED HIS HEAD. WHEN ASKED IF HE IS NAUSEATED, PT SHOOK HIS HEAD NO. WHEN ASKED IF HE WANTED HIS TUBE FEEDING TO BE STOPPED, HE AGAIN SHOOK HIS HEAD NO. PT HAS MEDICATION FOR NAUSEA BUT NOT FOR STOMACH ACHE. PT HAS HAD TWO BMS ON THIS SHIFT, SO IT IS UNLIKELY THAT HE IS CONSTIPATED. WILL REPORT TO ON-COMING SHIFT.
[2018-09-11 06:06] LABS: Anion Gap 7 mmol/L (6-16); Blood Urea Nitrogen 21 mg/dL (8-24); Bun/Creatinine Ratio 25.6 (12.0-20.0); CO2, Blood 25 mmol/L (21-32); Chloride, Blood 109 mmol/L (98-108); Creatinine, Blood 0.82 mg/dL (0.60-1.20); Glomerular Filtration Rate >60 (60-); Glucose, Blood 238 mg/dL (70-99); Sodium, Blood 141 mmol/L (136-145)
--- NOTE | 2018-09-11 17:50 | NUR ---
SUMMARY PT IS NONVERBAL, APPEARS FATIGUED/LETHARGIC MUCH OF DAY. HE AROUSES WITH VERBAL STIM, NODS YES/NO APPROP TO SIMPLE QUESTIONS. MAKES KNOWN NO PAIN TODAY. DX CVA WITH APHASIA, R ARM & LEG FLACCID. 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 TODAY GESTURED TOWARD LOWER ABD TO INDICATE ATTENDS DIRTY, SOFT HARDING MED BM, INCONT URINE. DOBHOFF FEEDING CONTINUES @ 70 ML/HR W WATER FLUSHES [address] LAWSON CONSULT DR GARCIA FOR PEG TUBE PLACEMENT. AFTER SPEAKING WITH PT'S DR GARCIA STATE EXPECT PLACEMENT SOMETIME TUESDAY, DR LAWSON AWARE. PT WILL HAVE XARELTO TONIGHT. HE IS BEDBOUND, REQUIRE TURN Q2 HRS & SUPPORT WITH PILLOWS. VSS.
--- NOTE | 2018-09-12 05:21 | NUR ---
VSS. AFEBRILE, PT SLEPT INTERMITTENLY OVERNOC. PT IS ACTIVELY ATTEMPTING TO COMMUNICATE WITH HIS CAREGIVERS, BUT IS FRUSTRATED WITH LESS THAN SATISFACTORY RESULTS. EVERY EFFORT IS MAKE TO UNDERSTAND WHAT HE IS TRYING TO TELL US, BUT SO FAR, WE HAVE BEEN LESS THAN SUCCESSFUL. PT'S TUBE FEEDING CONTINUE PER ORDER. NO SIGNIFICANT CHANGES NOTED. WILL REPORT TO ON-COMING SHIFT.
[2018-09-12 05:25] LABS: BASOPHILS ABSOLUTE AUTO 0.07 K/mm3 (0.00-0.23); BASOPHILS PERCENT AUTO 1 % (0-2); EOSINOPHILS ABSOLUTE AUTO 0.48 K/mm3 (0.00-0.68); EOSINOPHILS PERCENT AUTO 5 % (0-6); Hematocrit 36.2 % (37.0-53.0); IMMATURE GRAN ABSOLUTE AUTO 0.04 K/mm3 (0.00-0.10); IMMATURE GRAN PERCENT AUTO 0 % (0-1); LYMPHOCYTES ABSOLUTE AUTO 1.52 K/mm3 (0.84-5.20); LYMPHOCYTES PERCENT AUTO 16 % (21-46); MONOCYTES ABSOLUTE AUTO 0.84 K/mm3 (0.16-1.47); MONOCYTES PERCENT AUTO 9 % (4-13); Mean Corpuscular HGB 29.2 pg (26.0-34.0); Mean Corpuscular HGB Conc 30.4 g/dL (31.5-36.5); Mean Platelet Volume 10.6 fL (9.1-12.4); NEUTROPHILS ABSOLUTE AUTO 6.45 K/mm3 (1.96-9.15); NEUTROPHILS PERCENT AUTO 69 % (41-73); Platelet Count 242 K/mm3 (150-400); RDW Coefficient Variation 16.5 % (11.7-14.2); RDW Standard Deviation 56.8 fL (35.1-46.3); Red Blood Cell Count 3.77 M/mm3 (4.30-5.90)
[2018-09-12 05:42] LABS: Mean Corpuscular Volume 96 fL (80-100)
[2018-09-12 05:46] LABS: Anion Gap 6 mmol/L (6-16); Blood Urea Nitrogen 24 mg/dL (8-24); Bun/Creatinine Ratio 29.3 (12.0-20.0); CO2, Blood 27 mmol/L (21-32); Calcium, Blood 9.1 mg/dL (8.5-10.1); Chloride, Blood 107 mmol/L (98-108); Creatinine, Blood 0.82 mg/dL (0.60-1.20); Glomerular Filtration Rate >60 (60-); Glucose, Blood 256 mg/dL (70-99); Phosphorus, Blood 4.1 mg/dL (2.5-4.9); Potassium, Blood 4.2 mmol/L (3.5-5.5); Sodium, Blood 140 mmol/L (136-145)
[2018-09-12 06:04] LABS: Anion Gap 8 mmol/L (6-16); Blood Urea Nitrogen 24 mg/dL (8-24); Bun/Creatinine Ratio 28.4 (12.0-20.0); CO2, Blood 25 mmol/L (21-32); Calcium, Blood 9.3 mg/dL (8.5-10.1); Chloride, Blood 108 mmol/L (98-108); Creatinine, Blood 0.85 mg/dL (0.60-1.20); Glomerular Filtration Rate >60 (60-); Glucose, Blood 259 mg/dL (70-99); Potassium, Blood 4.2 mmol/L (3.5-5.5); Sodium, Blood 141 mmol/L (136-145)
--- NOTE | 2018-09-12 13:34 | NUR ---
Echocardiogram completed.
--- NOTE | 2018-09-12 17:13 | NUR ---
SUMMARY PT CONTNUES NONVERBAL, R SIDE FLACCID D/T ACUTE CVA. HX OF L SIDE WEAKNESS D/T OLD CVA. HE IS BEDBOUND @ THIS TIME. PHYTHER IN FOR TX, ASSISTED PT TO SIT UP ON BEDSIDE HOWEVER HE IS UNABLE TO HOLD HIMSELF UP. HE NODS YES/NO APPROP TO SIMPLE QUESTIONS, USES GESTURES W L HAND TO INDICATE INCONTINENCE. DOBHOFF TUBE FEED CONTINUES @ 70 ML/HR W H20 FLUSH [address] LAWSON IN THIS AM TO REVIEW & ADDRESS QUESTIONS W PT'S . PLAN FOR PT TO HAVE PEG PLACED TOMORROW BY DR GARCIA, CONSENT SIGNED BY , ON CHART. XARELTO ON HOLD. TUBE FEED TO BE STOPPED @ MIDNITE TONITE. VSS.
--- NOTE | 2018-09-13 05:19 | NUR ---
VSS, AFEBRILE, PT IS NON-VERBAL. PT'S IV WAS FOUND TO BE REMOVED FROM HIS ARM, NOBODY SEEMS TO KNOW HOW THAT HAPPENED. PT WAS GIVEN A NEW IV, 18G IN THE RIGHT WRIST. PT'S FEEDING TUBE WAS STOPPED AND DISCONNECTED AT MIDNIGHTIN ANTICIPATION OF SURGERY TODAY. WHEN THIS WAS EXPLAINED TO THE PT, HE NODDED HIS HEAD IN APPARENT UNDERSTANDING. PT HAS SLEPT WELL ALL NOC, SNORING AT TIMES. NO SIGNIFICANT CHANGES NOTED. WILL REPORT TO ON-COMING SHIFT.
[2018-09-13 05:41] LABS: BASOPHILS ABSOLUTE AUTO 0.05 K/mm3 (0.00-0.23); BASOPHILS PERCENT AUTO 1 % (0-2); EOSINOPHILS ABSOLUTE AUTO 0.45 K/mm3 (0.00-0.68); EOSINOPHILS PERCENT AUTO 4 % (0-6); Hematocrit 37.2 % (37.0-53.0); Hemoglobin 11.6 g/dL (13.5-17.5); IMMATURE GRAN ABSOLUTE AUTO 0.04 K/mm3 (0.00-0.10); IMMATURE GRAN PERCENT AUTO 0 % (0-1); LYMPHOCYTES ABSOLUTE AUTO 1.77 K/mm3 (0.84-5.20); LYMPHOCYTES PERCENT AUTO 17 % (21-46); MONOCYTES ABSOLUTE AUTO 1.02 K/mm3 (0.16-1.47); MONOCYTES PERCENT AUTO 10 % (4-13); Mean Corpuscular HGB Conc 31.2 g/dL (31.5-36.5); Mean Corpuscular Volume 93 fL (80-100); Mean Platelet Volume 10.9 fL (9.1-12.4); NEUTROPHILS ABSOLUTE AUTO 6.97 K/mm3 (1.96-9.15); NEUTROPHILS PERCENT AUTO 68 % (41-73); Platelet Count 268 K/mm3 (150-400); RDW Coefficient Variation 16.4 % (11.7-14.2); RDW Standard Deviation 54.9 fL (35.1-46.3)
[2018-09-13 05:59] LABS: Anion Gap 6 mmol/L (6-16); Blood Urea Nitrogen 24 mg/dL (8-24); Bun/Creatinine Ratio 25.3 (12.0-20.0); CO2, Blood 28 mmol/L (21-32); Calcium, Blood 9.2 mg/dL (8.5-10.1); Chloride, Blood 107 mmol/L (98-108); Creatinine, Blood 0.95 mg/dL (0.60-1.20); Glomerular Filtration Rate >60 (60-); Glucose, Blood 201 mg/dL (70-99); Potassium, Blood 3.9 mmol/L (3.5-5.5); Sodium, Blood 141 mmol/L (136-145)
--- NOTE | 2018-09-13 07:00 | NUR ---
Patient agreed for care by psychiatric nursing aide.
--- NOTE | 2018-09-13 12:25 | NUR ---
09/13/18 1225 [address] 3-LEAD EKG REVIEWED WITH PHYSICIAN PRIOR TO START OF PROCEDURE. History, Chart, Medications and Allergies reviewed before start of procedure.MONITOR INTACT WITH CONTINUOUS PULSE OXIMETRY AND INTERMITTENT BP.O2 VIA N/C INTACT THROUGHOUT SEDATION/PROCEDURE. Bite Block Placed
--- NOTE | 2018-09-13 13:26 | NUR ---
RETURNED FROM DAY SURGERY/PEG TUBE PLACEMENT. O2 IN PLACE AT 2L WITH 92%SAT. VSS. LS DIMINISHED PRIOR TO SURGERY AND NOW COARSE. SUCTION DONE. LARGE AMOUNT SALIVA SUCTIONED. NO GAG REFLEX. NO RESPONSE. RESP SHALLOW. WILL CONTINUE TO MONITOR.
--- NOTE | 2018-09-13 16:26 | NUR ---
SPOKE WITH ABOUT IVF. NS AT 75/HOUR TO BE STARTED. CONTINUING TO SUCTION FREQUENTLY WITH PATIENT ASPIRATING SALIVA. LOADING SUPERVISOR TO REGULATE PEG TUBE FEEDINGS IN THE MORNING. GIVING IV HYDRATION T/O PM TONIGHT ALONG WITH ABX. NON-RESPONSIVE.
--- NOTE | 2018-09-13 17:35 | NUR ---
SUMMARY PT RESTING QUIETLY IN BED, FAMILLY VISITING AT THE BEDSIDE, PT HAD A PEG TUBE PLACED TODAY, SITE IS CLEAN AND DRY, PLAN TO START PEG TUBE FEEDS IN AM, PT WAKES WITH ORAL CARE, FALLS BACK ASLEEP WHEN LEFT ALONE, VSS, NO ACUTE CHANGES, WILL CONT TO MONITOR
--- NOTE | 2018-09-14 08:48 | NUR ---
82 year old Male with acute cva cotinues nonverbal and npo due to dysphagia asphagia. He had peg tube placed yesterday and surgeon oks use of peg tube. Pt has rt pupil 4 and lt 2 and lt reactive 4 sluggish reaction. restarted tube feed Jevity 1.2 sharmila at 25 ml hr and 100 ml free water flush q 4 hours. Tolerated with some abd pain and mild nausea.
--- NOTE | 2018-09-14 17:39 | NUR ---
SHIFT SUMMARY. PT CONTINUES WITH ENTERAL FEEDINGS, IV ABX. PT TOLERATING WELL, RESIDUAL LESS THAN 40ML AT 6 HOUR INTERVALS. TUBE FEEDING INCREASEDTO 45ML/HR THIS AM, THEN TO GOAL RATE OF 70ML/HR AT THIS TIME. IV FLUIDS D/C'D THIS AFTERNOON. SPOKE WITH DR. LAWSON AND RECIEVED ORDERS TO D/C STOOL SOFTENERS AND CHANGE ALL PO MEDS TO PER TUBE. FAMILY AT BEDSIDE INTERMITTENTLY DURING SHIFT.
--- NOTE | 2018-09-15 19:35 | NUR ---
SHIFT SUMMARY- PT NONVERBAL. PT ABLE TO BLINK TWICE FOR YES AND ONCE FOR NO. PT C/O SEVERE ABD PAIN THIS PM. DENIES N/V. NOTIFIED DR. AGUIRRE. DR. AGUIRRE SAID TO ORDER TYLENOL 650MG PT Q4H PRN. MEDS GIVEN PER EMAR. DR. AGUIRRE SAID TO NOTIFY HIM IF THE TYLENOL DOES NOT HELP PAIN FOR A POSSIBLE CT OF ABD. PAGED DR. AGUIRRE TO NOTIFY HIM PT REPORTING TYLENOL DID NOT HELP. DID NOT GET A CALL BACK. NOTIFIED PEAT SHREDDER TENDER RN YUNG OF THE EVENTS. 96% ON 2L NC. DENIES SOB. RESP E/U. BEDREST. TURNS Q2H. FAMILY IN TO VISIT THIS AM AND PM. NO OTHER SIGNIFICANT CHANGES THIS SHIFT.
[2018-09-16 05:36] LABS: BASOPHILS ABSOLUTE AUTO 0.04 K/mm3 (0.00-0.23); BASOPHILS PERCENT AUTO 1 % (0-2); EOSINOPHILS ABSOLUTE AUTO 0.35 K/mm3 (0.00-0.68); EOSINOPHILS PERCENT AUTO 4 % (0-6); Hematocrit 32.6 % (37.0-53.0); Hemoglobin 10.1 g/dL (13.5-17.5); IMMATURE GRAN ABSOLUTE AUTO 0.03 K/mm3 (0.00-0.10); IMMATURE GRAN PERCENT AUTO 0 % (0-1); LYMPHOCYTES ABSOLUTE AUTO 1.92 K/mm3 (0.84-5.20); LYMPHOCYTES PERCENT AUTO 22 % (21-46); MONOCYTES ABSOLUTE AUTO 0.94 K/mm3 (0.16-1.47); MONOCYTES PERCENT AUTO 11 % (4-13); Mean Corpuscular Volume 94 fL (80-100); NEUTROPHILS ABSOLUTE AUTO 5.34 K/mm3 (1.96-9.15); NEUTROPHILS PERCENT AUTO 62 % (41-73); Platelet Count 234 K/mm3 (150-400); RDW Coefficient Variation 16.1 % (11.7-14.2); RDW Standard Deviation 54.5 fL (35.1-46.3); Red Blood Cell Count 3.48 M/mm3 (4.30-5.90); White Blood Cell Count 8.62 K/mm3 (4.00-11.30)
--- NOTE | 2018-09-16 05:56 | NUR ---
SHIFT SUMMARY: PT C/O PAIN TO ABDOMEN/PEG TUBE SITE. SITE LOOKS WNL, RESIDUAL CHECKS WNL, TOLERATING FEEDING WELL. HOSPITALIST ORDERS OT DOSE OF 5MG OXYCODONE PT. PT NODS YES WHEN ASKED IF MED HELPED CONTROL PAIN. TUBE FEEDINGS CONTINUOUS RATE OF 70 ML/HR, WITH 100ML FLUID BOLUS Q4H. RESIDUAL CHECKS Q4H RANGE FROM 25-50 ML. ABDOMEN IS NONDISTENDED, BOWEL TONES NORMO X 4. ORAL SUCTIONING PERFORMED PRN. LS COARSE T/O. PT CONTINUE TO BE R SIDE FLACCID, HOWEVER DOES REPORT FEELING. NONVERBAL, ANSWER Q'S APPROP NODDING YES/NO. BEDBOUND; Q2H TURNS. Q6H BLOOD SUGARS -- 181 AND 162 THIS SHIFT, NO INSULIN COV NEEDED. NO OTHER CHANGES TO REPORT. WILL CONT TO MONITOR AND PROVIDE CARE UNTIL PRESUMED BY ONCOMING RN.
[2018-09-16 06:04] LABS: Albumin, Blood 2.8 g/dL (3.4-5.0); Anion Gap 4 mmol/L (6-16); Blood Urea Nitrogen 20 mg/dL (8-24); Bun/Creatinine Ratio 25.8 (12.0-20.0); CO2, Blood 29 mmol/L (21-32); Calcium, Blood 8.6 mg/dL (8.5-10.1); Chloride, Blood 107 mmol/L (98-108); Creatinine, Blood 0.78 mg/dL (0.60-1.20); Glomerular Filtration Rate >60 (60-); Glucose, Blood 188 mg/dL (70-99); Magnesium, Blood 1.9 mg/dL (1.6-2.4); Phosphorus, Blood 3.4 mg/dL (2.5-4.9); Potassium, Blood 3.9 mmol/L (3.5-5.5); Sodium, Blood 140 mmol/L (136-145)
--- NOTE | 2018-09-16 17:23 | NUR ---
PT OPENS HIS EYES TO VERBAL STIMULI, SHAKES HIS HEAD YES/NO TO SIMPLE QUESTIONS, THE PT SLEPT T/O THE DAY, THE PT POINTS TO HIS MID ABD WHEN ASKED IF HE IS IN PAIN, THE PT WAS MEDICATED WITH TYLENOL FOR PAIN, THE PT APPEARS TO BE BREATHING EASILY ON O2 @ 2L/MIN, PT WAS TURNED T/O THE DAY, CALL LIGHT IN REACH, BED IN LOW POSITION
[2018-09-17 05:16] LABS: BASOPHILS ABSOLUTE AUTO 0.07 K/mm3 (0.00-0.23); BASOPHILS PERCENT AUTO 1 % (0-2); EOSINOPHILS ABSOLUTE AUTO 0.36 K/mm3 (0.00-0.68); EOSINOPHILS PERCENT AUTO 4 % (0-6); Hematocrit 32.3 % (37.0-53.0); Hemoglobin 10.2 g/dL (13.5-17.5); IMMATURE GRAN ABSOLUTE AUTO 0.03 K/mm3 (0.00-0.10); IMMATURE GRAN PERCENT AUTO 0 % (0-1); LYMPHOCYTES ABSOLUTE AUTO 1.92 K/mm3 (0.84-5.20); LYMPHOCYTES PERCENT AUTO 24 % (21-46); MONOCYTES ABSOLUTE AUTO 0.92 K/mm3 (0.16-1.47); MONOCYTES PERCENT AUTO 11 % (4-13); Mean Corpuscular HGB 29.5 pg (26.0-34.0); Mean Corpuscular HGB Conc 31.6 g/dL (31.5-36.5); Mean Corpuscular Volume 93 fL (80-100); NEUTROPHILS ABSOLUTE AUTO 4.79 K/mm3 (1.96-9.15); NEUTROPHILS PERCENT AUTO 59 % (41-73); Platelet Count 236 K/mm3 (150-400); RDW Coefficient Variation 16.1 % (11.7-14.2); RDW Standard Deviation 54.7 fL (35.1-46.3); Red Blood Cell Count 3.46 M/mm3 (4.30-5.90); White Blood Cell Count 8.09 K/mm3 (4.00-11.30)
[2018-09-17 05:34] LABS: Albumin, Blood 2.8 g/dL (3.4-5.0); Anion Gap 6 mmol/L (6-16); Blood Urea Nitrogen 20 mg/dL (8-24); Bun/Creatinine Ratio 25.3 (12.0-20.0); CO2, Blood 26 mmol/L (21-32); Calcium, Blood 8.6 mg/dL (8.5-10.1); Chloride, Blood 109 mmol/L (98-108); Creatinine, Blood 0.79 mg/dL (0.60-1.20); Glomerular Filtration Rate >60 (60-); Glucose, Blood 111 mg/dL (70-99); Phosphorus, Blood 3.9 mg/dL (2.5-4.9); Potassium, Blood 3.9 mmol/L (3.5-5.5); Sodium, Blood 141 mmol/L (136-145)
--- NOTE | 2018-09-17 06:52 | NUR ---
SHIFT SUMMARY: DR AGUIRRE ORDERS CT OF ABDOMEN AND PELVIS c CONTRAST. ALSO ORDERS 600 MG IBUPROFEN PER TUBE FOR PAIN. PEG TUBE IN R UPPER/MID QUAD PATENT. WATER FLUSHES Q4H AND WITH ALL MEDS. Q6H BLOOD SUGARS WNL, NO INSULIN COVERAGE NEEDED. Q2H TURNS COMPLETE. WILL CONT TO MONITOR AND PROVIDE CARE UNTIL PRESUEMD BY ONCOMING RN.
--- NOTE | 2018-09-17 16:46 | NUR ---
PT IS ALERT, IS NONVERBAL, HOWEVER, ANSWERS QUESTION BY SHAKING HIS HEAD YES/NO AND BLINKING HIS EYES APPROPRIATLY, THE PT WAS TURNED T/O THE DAY, THE PTS OXYGEN WAS REMOVED AT 1630 AND SO FAR REMAINS IN THE MID 90% RANGE ON RA, THE PT CONTINUES TO HAVE A MOIST WET COUGH, THE PT WAS GIVEN BOLUS TUBE FEEDINS EXCEPT THIS AM IN WHICH HE WAS NPO FOR A SCAN, THE PT WAS MEDICATED FOR PAIN X2 TODAY, THE PT DENIED ANY NAUSEA, CALL LIGHT IN REACH, FAMILY AT THE BEDSIDE AT THIS TIME, THIS AM IT WAS NOTICED THAT THE PTS PEG TUBE DRESSING WAS BLOODY THE DRESSING WAS CHANGED TWICE T/O THE SHIFT, DR. AGUIRRE EXAMINED THE SITE THE FAMILY IS AWARE
--- NOTE | 2018-09-17 23:16 | NUR ---
PEG TUBE SITE DRAINING BRIGHT RED BLOOD. SATURATES DRESSING. ATTENDING PHYSICIAN AWARE AND CT CONFIRMS PLACEMENT. CHANGED DRESSING AT THIS TIME AND CLEANED SITE.
--- NOTE | 2018-09-18 03:25 | NUR ---
SECOND DRESSING CHANGE TO PEG TUBE SITE. BRIGHT RED BLOOD FROM SITE, SATURATING DRESSING WITHIN 4 HRS. OBTAINED ABDOMINAL BINDER; NOW IN PLACE. WILL CONT TO MONITOR.
--- NOTE | 2018-09-18 03:27 | NUR ---
PT HAVING LIQUID STOOL X 4 DAYS. SENDING OFF SAMPLE TO LAB.
[2018-09-18 04:58] LABS: Adenovirus F 40/41 Not Detected (NOT DETECT); Astrovirus Not Detected (NOT DETECT); Campylobacter Sp Not Detected (NOT DETECT); Cryptosporidium Not Detected (NOT DETECT); Cyclospora Cayetanensis Not Detected (NOT DETECT); E. Coli O157 Not Detected (NOT DETECT); Entamoeba Histolytica Not Detected (NOT DETECT); Enteroaggregative E. coli-EAEC Not Detected (NOT DETECT); Enteropathogenic E. coli-EPEC Not Detected (NOT DETECT); Enterotoxigenic E. coli-ETEC Not Detected (NOT DETECT); Giardia Lamblia Not Detected (NOT DETECT); Norovirus GI/GII Not Detected (NOT DETECT); Plesiomonas Shigelloides Not Detected (NOT DETECT); Rotavirus A Not Detected (NOT DETECT); Salmonella Sp Not Detected (NOT DETECT); Sapovirus Not Detected (NOT DETECT); Shiga Toxin-prod E. coli-STEC Not Detected (NOT DETECT); Shigella/Enteroin E. coli-EIEC Not Detected (NOT DETECT); Vibrio Cholerae Not Detected (NOT DETECT); Vibrio Sp Not Detected (NOT DETECT); Yersinia Enterocolitica Not Detected (NOT DETECT)
[2018-09-18 05:25] LABS: BASOPHILS ABSOLUTE AUTO 0.05 K/mm3 (0.00-0.23); BASOPHILS PERCENT AUTO 1 % (0-2); EOSINOPHILS ABSOLUTE AUTO 0.25 K/mm3 (0.00-0.68); EOSINOPHILS PERCENT AUTO 3 % (0-6); Hematocrit 33.2 % (37.0-53.0); Hemoglobin 10.4 g/dL (13.5-17.5); IMMATURE GRAN ABSOLUTE AUTO 0.03 K/mm3 (0.00-0.10); IMMATURE GRAN PERCENT AUTO 0 % (0-1); LYMPHOCYTES ABSOLUTE AUTO 1.98 K/mm3 (0.84-5.20); LYMPHOCYTES PERCENT AUTO 21 % (21-46); MONOCYTES ABSOLUTE AUTO 0.98 K/mm3 (0.16-1.47); MONOCYTES PERCENT AUTO 11 % (4-13); Mean Corpuscular HGB 28.8 pg (26.0-34.0); Mean Corpuscular HGB Conc 31.3 g/dL (31.5-36.5); Mean Corpuscular Volume 92 fL (80-100); NEUTROPHILS ABSOLUTE AUTO 5.99 K/mm3 (1.96-9.15); NEUTROPHILS PERCENT AUTO 65 % (41-73); Platelet Count 262 K/mm3 (150-400); RDW Coefficient Variation 15.7 % (11.7-14.2); RDW Standard Deviation 52.9 fL (35.1-46.3); Red Blood Cell Count 3.61 M/mm3 (4.30-5.90); White Blood Cell Count 9.28 K/mm3 (4.00-11.30)
[2018-09-18 05:44] LABS: Albumin, Blood 2.8 g/dL (3.4-5.0); Anion Gap 6 mmol/L (6-16); Blood Urea Nitrogen 18 mg/dL (8-24); Bun/Creatinine Ratio 22.8 (12.0-20.0); CO2, Blood 28 mmol/L (21-32); Calcium, Blood 8.7 mg/dL (8.5-10.1); Chloride, Blood 108 mmol/L (98-108); Creatinine, Blood 0.79 mg/dL (0.60-1.20); Glomerular Filtration Rate >60 (60-); Glucose, Blood 116 mg/dL (70-99); Phosphorus, Blood 3.2 mg/dL (2.5-4.9); Potassium, Blood 3.9 mmol/L (3.5-5.5); Sodium, Blood 142 mmol/L (136-145)
--- NOTE | 2018-09-18 06:45 | NUR ---
3RD DRESSING CHANGE TO PEG TUBE. DRESSING SATURATED c BRIGHT RED BLOOD. H/H STABLE WITH THIS AM LABS. DRESSING CHANGE COMPLETE AND WILL CONT TO MONITOR.
--- NOTE | 2018-09-18 06:48 | NUR ---
GI PANEL RESULTS GI PANEL RESULTS NEG FOR ANY ACUTE CHANGES
--- NOTE | 2018-09-18 07:53 | NUR ---
SHIFT SUMMARY: PEG TUBE SITE CONTINUES TO HAVE BRIGHT RED BLOODY DRAINAGE. MAIKOL SCHMIDT AWARE. DRESSING CHANGES NEEDED 2X FOR SATURATION OF DRESSINGS. RESIDUAL CHECKS >100 ML. FEEDING BOLUS STARTED THIS AM @ 0600 FOR TOTAL OF 480 ML. FLUSHES PER ORDERS AND c MEDS. PT DENIES PAIN. STOOL SAMPLE SENT AND IS NEG FOR ACUTE PROCESS. NO OTHER CHANGES TO REPORT. WILL CONT TO MONITOR AND PROVIDE CAR EUNTIL PRESUMED BY ONCOMING RN.
--- NOTE | 2018-09-18 17:14 | NUR ---
SLEEPING MOST OF DAY. TURNED Q 2 HOURS. SOMETIMES WAKES UP FOR TURNING. PEG TUBE DRESSING CLEAN AND INTACT. SEEMS TO TOLERATE BOLUS FEEDINGS. IV PATENT. HOB AT 45 DEGREES FOR FEEDING. ABLE TO WIGGLE LEFT TOES AND SQUEEZE LEFT HAND ON COMMAND. UNABLE TO MOVE RT SIDED EXTREMITIES. HEEL PROTECTORS ON. BED IN LOW POSITION. FREQUENT ROUNDING. WILL CONTINUE TO MONITOR.
[2018-09-19 05:25] LABS: BASOPHILS ABSOLUTE AUTO 0.06 K/mm3 (0.00-0.23); BASOPHILS PERCENT AUTO 1 % (0-2); EOSINOPHILS ABSOLUTE AUTO 0.33 K/mm3 (0.00-0.68); EOSINOPHILS PERCENT AUTO 4 % (0-6); Hemoglobin 10.5 g/dL (13.5-17.5); IMMATURE GRAN ABSOLUTE AUTO 0.03 K/mm3 (0.00-0.10); IMMATURE GRAN PERCENT AUTO 0 % (0-1); LYMPHOCYTES PERCENT AUTO 23 % (21-46); MONOCYTES ABSOLUTE AUTO 0.85 K/mm3 (0.16-1.47); MONOCYTES PERCENT AUTO 10 % (4-13); Mean Corpuscular HGB 29.8 pg (26.0-34.0); Mean Corpuscular HGB Conc 31.8 g/dL (31.5-36.5); Mean Corpuscular Volume 94 fL (80-100); Mean Platelet Volume 11.4 fL (9.1-12.4); NEUTROPHILS ABSOLUTE AUTO 5.04 K/mm3 (1.96-9.15); NEUTROPHILS PERCENT AUTO 61 % (41-73); Platelet Count 272 K/mm3 (150-400); RDW Coefficient Variation 15.8 % (11.7-14.2); RDW Standard Deviation 53.5 fL (35.1-46.3); Red Blood Cell Count 3.52 M/mm3 (4.30-5.90); White Blood Cell Count 8.21 K/mm3 (4.00-11.30)
[2018-09-19 05:40] LABS: Albumin, Blood 2.8 g/dL (3.4-5.0); Anion Gap 6 mmol/L (6-16); Blood Urea Nitrogen 20 mg/dL (8-24); Bun/Creatinine Ratio 26.2 (12.0-20.0); CO2, Blood 29 mmol/L (21-32); Calcium, Blood 8.7 mg/dL (8.5-10.1); Chloride, Blood 108 mmol/L (98-108); Creatinine, Blood 0.76 mg/dL (0.60-1.20); Glomerular Filtration Rate >60 (60-); Glucose, Blood 103 mg/dL (70-99); Phosphorus, Blood 3.6 mg/dL (2.5-4.9); Sodium, Blood 143 mmol/L (136-145)
--- NOTE | 2018-09-19 05:45 | NUR ---
SHIFT SUMMARY PT RESTED QUIETLY THRU OUT THE SHIFT. WAKES BRIEFLY FOR CARE. DOES NOT ASSIST. R SIDE FLACCID WITH L SIDE VERY WEAK. 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 INCONTINENT OF BOWEL AND BLADDER. MULTIPLE LIQUID STOOLS THIS SHIFT. SM AMT OF REDNESS ON SCROTUM; BARRIER CREAM APPLIED. PT UNABLE TO COMMUNICATE. RUE SWOLLEN PRIOR TO START OF SHIFT. PER REPORT, SWELLING HAS REMAINED UNCHANGED. ATTEMPTED TO ELEVATE IT ON PILLOW, BUT DID NOT SEEM TO HELP AT ALL. PEG TUBE FEEDING FINISHING AT START OF LAST NIGHT. NEW FEEDING TO START THIS AM. PT TOLERATED WELL. HEEL PROTECTORS ON. SKIN VERY PALE, SOMETIMES COOL AND SOMETIMES CLAMMY. CBG'S WNL'S. IN TO SEE PT BRIEFLY LAST NIGHT. TO RETURN THIS AM. PER REPORT, STILL UNSURE OF PLAN FOR D/C. CALL LT IN REACH.
--- NOTE | 2018-09-19 13:47 | NUR ---
was given permission to assist in care 09/19/2018.
--- NOTE | 2018-09-19 18:41 | NUR ---
NO ACUTE CHANGES THIS SHIFT. TOLERATED PEGG FEEDINGS. NO DISTRESS NOTED.
--- NOTE | 2018-09-20 04:35 | NUR ---
SHIFT SUMMARY NO ACUTE CHANGES TO PRESENT THIS SHIFT. PT SLEEPS MOST ALL OF SHIFT EVERY NIGHT. IN TO SEE PT AT HS AND WOKE HIM BRIEFLY WHILE HERE. PT DOES WAKE FOR ONLY A MOMENT WHEN FIRST GOING IN TO CHANGE HIM, BUT THEN GOES BACK TO SLEEP WHILE CLEANING HIM UP. CONTINUES TO HAVE LOOSE INCONTINENT STOOLS WITH ALMOST EVERY CHANGE. SCROTUM BECOMING RED D/T CONSTANT INCONTINENCE. SKIN VERY PALE AND EDEMATOUS. UNCLEAR IF PT PARTICIPATED WITH PT/OT YESTERDAY. PT STILL WAITING PLACEMENT. CALL LT REACH.
[2018-09-20 05:18] LABS: BASOPHILS ABSOLUTE AUTO 0.06 K/mm3 (0.00-0.23); BASOPHILS PERCENT AUTO 1 % (0-2); EOSINOPHILS ABSOLUTE AUTO 0.29 K/mm3 (0.00-0.68); EOSINOPHILS PERCENT AUTO 3 % (0-6); Hematocrit 31.5 % (37.0-53.0); IMMATURE GRAN ABSOLUTE AUTO 0.03 K/mm3 (0.00-0.10); IMMATURE GRAN PERCENT AUTO 0 % (0-1); LYMPHOCYTES ABSOLUTE AUTO 2.07 K/mm3 (0.84-5.20); LYMPHOCYTES PERCENT AUTO 23 % (21-46); MONOCYTES ABSOLUTE AUTO 0.94 K/mm3 (0.16-1.47); MONOCYTES PERCENT AUTO 11 % (4-13); Mean Corpuscular HGB 29.3 pg (26.0-34.0); Mean Corpuscular HGB Conc 31.7 g/dL (31.5-36.5); Mean Corpuscular Volume 92 fL (80-100); Mean Platelet Volume 11.1 fL (9.1-12.4); NEUTROPHILS ABSOLUTE AUTO 5.51 K/mm3 (1.96-9.15); NEUTROPHILS PERCENT AUTO 62 % (41-73); Platelet Count 270 K/mm3 (150-400); RDW Coefficient Variation 15.9 % (11.7-14.2); RDW Standard Deviation 53.4 fL (35.1-46.3); Red Blood Cell Count 3.41 M/mm3 (4.30-5.90)
[2018-09-20 05:37] LABS: Anion Gap 6 mmol/L (6-16); Blood Urea Nitrogen 17 mg/dL (8-24); Bun/Creatinine Ratio 22.3 (12.0-20.0); CO2, Blood 28 mmol/L (21-32); Calcium, Blood 8.6 mg/dL (8.5-10.1); Chloride, Blood 109 mmol/L (98-108); Creatinine, Blood 0.76 mg/dL (0.60-1.20); Glomerular Filtration Rate >60 (60-); Glucose, Blood 156 mg/dL (70-99); Sodium, Blood 143 mmol/L (136-145)
--- NOTE | 2018-09-20 11:59 | NUR ---
clots found at peg insertion. when changing the drain dressing there was 9mm and smaller clots and bloody drainage around the insertion site. Peg tube bolster appears to be pressing into the abdomen. When performing residuals a couple small bloody clots were noted. Discussed findings with marcial box RN and mode sanabria RN. changed dressing and cleaned insertion site. left message at [facility] for doctor decker.
--- NOTE | 2018-09-20 17:19 | NUR ---
NO ACUTE CHANGES TO PATIENT. PATIENT HAD DRESSING TO PEGG CHANGED THIS SHIFT. LEONARDO RED DISCHARGE NOTED. DOCTOR NOTIFED AND SURGEON CALLED. THIS NURSE EXPLAINED FINDINGS TO SURGEON AND HE STATED THIS WAS NORMAL FOR NEW PEGG PLACEMENTS. THIS NURSE WILL PASS ON TO HEAD WAITER/WAITRESS BANQUET TO CHANGE DRESSING DAILY AND MONTITOR FOR BLOOD LOSS. PATIENT IS NON VERBAL BUT COMMUNICATES THROUGH SLIGHT NODS OR SQUEEZING OF HANDS.
[2018-09-21 04:55] LABS: BASOPHILS ABSOLUTE AUTO 0.08 K/mm3 (0.00-0.23); BASOPHILS PERCENT AUTO 1 % (0-2); EOSINOPHILS ABSOLUTE AUTO 0.35 K/mm3 (0.00-0.68); EOSINOPHILS PERCENT AUTO 4 % (0-6); Hematocrit 33.8 % (37.0-53.0); Hemoglobin 10.5 g/dL (13.5-17.5); IMMATURE GRAN ABSOLUTE AUTO 0.03 K/mm3 (0.00-0.10); IMMATURE GRAN PERCENT AUTO 0 % (0-1); LYMPHOCYTES ABSOLUTE AUTO 2.02 K/mm3 (0.84-5.20); LYMPHOCYTES PERCENT AUTO 20 % (21-46); MONOCYTES ABSOLUTE AUTO 0.91 K/mm3 (0.16-1.47); MONOCYTES PERCENT AUTO 9 % (4-13); Mean Corpuscular HGB 29.2 pg (26.0-34.0); Mean Corpuscular HGB Conc 31.1 g/dL (31.5-36.5); Mean Corpuscular Volume 94 fL (80-100); Mean Platelet Volume 10.9 fL (9.1-12.4); NEUTROPHILS ABSOLUTE AUTO 6.52 K/mm3 (1.96-9.15); NEUTROPHILS PERCENT AUTO 66 % (41-73); Platelet Count 272 K/mm3 (150-400); RDW Coefficient Variation 15.6 % (11.7-14.2); RDW Standard Deviation 53.4 fL (35.1-46.3); White Blood Cell Count 9.91 K/mm3 (4.00-11.30)
--- NOTE | 2018-09-21 06:43 | NUR ---
SHIFT SUMMARY PT AWAKE ON/OFF T/O NIGHT. NO ACUTE CHANGES. ALERT, NODS HEAD YES/NO TO QUESTIONS & SQUEEZES LT HAND FOR YES. DENIES SOB OR PAIN. REPORTED NAUSEA 1X LAST NIGHT & WAS MEDICATED W/ZOFRAN PER ORDERS. ABLE TO MOVE LT ARM & WIGGLE TOES ON LT FOOT, FLACCID RT SIDE. TURNED, REPOSITIONED & CHANGED Q2H. PEG TUBE STILL BLEEDING AROUND INSERTION SITE, BANDAGE CHANGE 2X THIS SHIFT. CALL LIGHT IN REACH, BED IN LOWEST POSITION.
[2018-09-21] MEDS ORDERED: RANI150EL PT (12:08)
[2018-09-21] MEDS ORDERED: ONDA4ODT PT (12:08)
[2018-09-21] MEDS ORDERED: SERT50 PT (12:09)
[2018-09-21] MEDS ORDERED: Norco 5-325 Ta1 EACH PT (12:12)
[2018-09-21] MEDS ORDERED: ACET325UDC PT (12:14)
[2018-09-21] MEDS ORDERED: Banatrol1 EACH PT (12:14)
[2018-09-21] MEDS ORDERED: BISA10S PR (12:15)
[2018-09-21] MEDS ORDERED: INSUGL100V SC (12:16)
[2018-09-21] MEDS ORDERED: Humulin R500 UNIT/1 SC (12:17)
--- NOTE | 2018-09-21 14:49 | NUR ---
RN CALLED THE PATIENT'S REGARDING THE HOLD UP OF HIS DISCHARGE. THE DID NOT ANSWER SAID CALL.
--- NOTE | 2018-09-21 17:13 | NUR ---
PT IS ALERT AND RESPONDS TO VERBAL STIMULI. THE PLAN WAS FOR THIS PATIENT TO DISCHARGE TO [facility] TODAY. THE PATIENT'S WAS AT THE BEDSIDE THIS MORNING. THE PATIENT TOLERATED HIS TUBE FEEDINGS WELL TODAY. HE PARTICIPATED WITH PHYSICAL AND OCCUPATIONAL THERAPY. HE HAS TWO BOWEL MOVEMENTS, BOTH LOOSE. THE PATIENT COMMUNICATIONS WITH NODDING. WILL CONTINUE TO MONITOR.
[2018-09-22 05:18] LABS: BASOPHILS ABSOLUTE AUTO 0.08 K/mm3 (0.00-0.23); BASOPHILS PERCENT AUTO 1 % (0-2); EOSINOPHILS ABSOLUTE AUTO 0.29 K/mm3 (0.00-0.68); EOSINOPHILS PERCENT AUTO 3 % (0-6); Hematocrit 33.5 % (37.0-53.0); Hemoglobin 10.2 g/dL (13.5-17.5); IMMATURE GRAN ABSOLUTE AUTO 0.03 K/mm3 (0.00-0.10); IMMATURE GRAN PERCENT AUTO 0 % (0-1); LYMPHOCYTES ABSOLUTE AUTO 2.04 K/mm3 (0.84-5.20); LYMPHOCYTES PERCENT AUTO 22 % (21-46); MONOCYTES ABSOLUTE AUTO 0.82 K/mm3 (0.16-1.47); MONOCYTES PERCENT AUTO 9 % (4-13); Mean Corpuscular HGB 28.7 pg (26.0-34.0); Mean Corpuscular HGB Conc 30.4 g/dL (31.5-36.5); Mean Corpuscular Volume 94 fL (80-100); Mean Platelet Volume 11.2 fL (9.1-12.4); NEUTROPHILS ABSOLUTE AUTO 5.99 K/mm3 (1.96-9.15); NEUTROPHILS PERCENT AUTO 65 % (41-73); Platelet Count 279 K/mm3 (150-400); RDW Coefficient Variation 15.8 % (11.7-14.2); RDW Standard Deviation 54.4 fL (35.1-46.3); Red Blood Cell Count 3.55 M/mm3 (4.30-5.90); White Blood Cell Count 9.25 K/mm3 (4.00-11.30)
[2018-09-22 05:42] LABS: Anion Gap 7 mmol/L (6-16); Blood Urea Nitrogen 18 mg/dL (8-24); Bun/Creatinine Ratio 25.4 (12.0-20.0); CO2, Blood 26 mmol/L (21-32); Calcium, Blood 8.9 mg/dL (8.5-10.1); Chloride, Blood 107 mmol/L (98-108); Creatinine, Blood 0.71 mg/dL (0.60-1.20); Glomerular Filtration Rate >60 (60-); Glucose, Blood 142 mg/dL (70-99); Potassium, Blood 4.2 mmol/L (3.5-5.5); Sodium, Blood 140 mmol/L (136-145)
--- NOTE | 2018-09-22 06:39 | NUR ---
SHIFT SUMMARY PT AWAKE ON/OFF T/O NIGHT. NO ACUTE CHANGES THIS SHIFT. ALERT W/APHASIA, NODS HEAD YES/NO TO QUESTIONS, FOLLOWS DIRECTIONS. VSS. DENIES PAIN, NAUSEA OR SOB. CHANGED & REPOSITIONED Q2H PRN. PEG TUBE PATENT & HASN'T BEEN BLEEDING AROUND INSERTION SITE THIS SHIFT. CBG UNDER 200 THIS SHIFT, THEREFORE NO COVERAGE PROVIDED. CALL LIGHT IN REACH.
--- NOTE | 2018-09-22 19:15 | NUR ---
PATIENT WAS MORE ALERT THIS AFTERNOON. FAMILY WAS AT THE BEDSIDE. DR. AVALOS WAS ABLE TO SPEAK WITH THE FAMILY ABOUT HOSPICE AND GETTING A SPEECH THERAPY CONSULT. PATIENT TOLERATED TUBE FEEDINGS WELL.
--- NOTE | 2018-09-23 01:11 | NUR ---
PT EXPRESSED PAIN 11/15. HE HAS AN ORDER FOR NO IV AND HIS FENTANYL IS IV. CALLED TO DR BLEVINS RECIEVED ORDER FOR NORCO Q4PRN PAIN. THIS FLAGGED A CROSS ALLERGY TO TRAMADOL. I DID SPEAK WITH PT AND HE RELATES HE HAS HAD NORCO IN THE PAST AND NOT HAD A PROBLEM TAKING IT. INFORMED PHARMACY OF THIS.
[2018-09-23 05:53] LABS: BASOPHILS PERCENT AUTO 1 % (0-2); EOSINOPHILS ABSOLUTE AUTO 0.34 K/mm3 (0.00-0.68); EOSINOPHILS PERCENT AUTO 3 % (0-6); Hematocrit 32.7 % (37.0-53.0); Hemoglobin 10.3 g/dL (13.5-17.5); IMMATURE GRAN ABSOLUTE AUTO 0.03 K/mm3 (0.00-0.10); IMMATURE GRAN PERCENT AUTO 0 % (0-1); LYMPHOCYTES ABSOLUTE AUTO 2.43 K/mm3 (0.84-5.20); LYMPHOCYTES PERCENT AUTO 23 % (21-46); MONOCYTES ABSOLUTE AUTO 0.99 K/mm3 (0.16-1.47); MONOCYTES PERCENT AUTO 10 % (4-13); Mean Corpuscular HGB Conc 31.5 g/dL (31.5-36.5); Mean Corpuscular Volume 92 fL (80-100); Mean Platelet Volume 11.4 fL (9.1-12.4); NEUTROPHILS ABSOLUTE AUTO 6.54 K/mm3 (1.96-9.15); NEUTROPHILS PERCENT AUTO 63 % (41-73); Platelet Count 283 K/mm3 (150-400); RDW Coefficient Variation 15.7 % (11.7-14.2); Red Blood Cell Count 3.55 M/mm3 (4.30-5.90); White Blood Cell Count 10.43 K/mm3 (4.00-11.30)
[2018-09-23 06:10] LABS: Alanine Aminotransfer (ALT/SGP 80 U/L (12-78); Albumin, Blood 2.9 g/dL (3.4-5.0); Albumin/Globulin Ratio 0.8 (0.8-1.8); Alk Phos 77 U/L (50-136); Anion Gap 7 mmol/L (6-16); Aspartate Aminotrans (AST/SGOT 61 U/L (12-37); Bilirubin, Total 0.6 mg/dL (0.1-1.0); Blood Urea Nitrogen 20 mg/dL (8-24); Bun/Creatinine Ratio 25.9 (12.0-20.0); CO2, Blood 28 mmol/L (21-32); Calcium, Blood 9.1 mg/dL (8.5-10.1); Chloride, Blood 107 mmol/L (98-108); Creatinine, Blood 0.77 mg/dL (0.60-1.20); Globulin, Blood 3.6 g/dL (2.2-4.0); Glomerular Filtration Rate >60 (60-); Glucose, Blood 113 mg/dL (70-99); Potassium, Blood 4.2 mmol/L (3.5-5.5); Sodium, Blood 142 mmol/L (136-145); Total Protein, Blood 6.5 g/dL (6.4-8.2)
--- NOTE | 2018-09-23 07:41 | NUR ---
NOT SHIFT SUMMARY PT HAS BEEN COOPERATIVE WITH CARE THIS NIGHT. HE HAS BEEN TURNED [id number]. HE DID COMPLAIN OF SOME 7/10 PAIN BUT WAS UNABLE TO TELL WHERE, PT IS LARGELY NONVERBAL DUE TO STROKE. TREATED WITH NORCO TO GOOD EFFECT. VSS. NO ACUTE CHANGES NOTED THIS NIGHT. REPORT TO ONCOMING RN.
--- NOTE | 2018-09-23 19:51 | NUR ---
SUMM- PT ALERT TO SELF AND FAMILY. NODS YES AND NO TO QUESTIONS. TURNED Q2. HAD SEMISOFT BM TODAY. TOLERATING BOLUS TUBE FEEDS WITH NO RESIDUAL. RASH TO GROIN, NOTIFIED FREDERIC CLAYTON'D NYSTATIN ORDER. MEDICATED ONCE FOR PAIN, UNSURE WHERE, BUT NODDED YES. APPEARED EFFECTIVE, PT SLEPT AFTER LORTAB 1. SON IN TO VISIT 2 X'S. CALLED 4 TIMES TODAY FOR UPDATES. PORT CXR DONE, RESULTS STATE NO CHANGE FROM PREVIOUS. PT SUCTIONED EVERY 2 HOURS, MOIST COUGH WITH MIN PRODUCTION, UNABLE TO CLEAR SECRETIONS. REPORT GIVEN TO ERIN FUNEZ.
--- NOTE | 2018-09-24 04:28 | NUR ---
NOC SHIFT SUMMARY NO CHANGE IN PATIENT NOTED SINCE LAST SHIFT. R SIDED PERALYSIS AND ONLY GROSS MOVEMENTS WITH L ARM. PT HAS BEEN SUCTIONED PRN THIS NIGHT. HE IS ABLE TO NOD OR SHAKE HIS HEAD YES OR NO. HAS BEEN TURNED [id number]. VSS. APPEAR IN NO ACUTE DISTRESS AT THIS TIME. WILL CONTINUE TO MONITOR.
[2018-09-24 04:52] LABS: BASOPHILS PERCENT AUTO 1 % (0-2); EOSINOPHILS ABSOLUTE AUTO 0.41 K/mm3 (0.00-0.68); EOSINOPHILS PERCENT AUTO 4 % (0-6); Hemoglobin 10.6 g/dL (13.5-17.5); IMMATURE GRAN ABSOLUTE AUTO 0.04 K/mm3 (0.00-0.10); IMMATURE GRAN PERCENT AUTO 0 % (0-1); LYMPHOCYTES ABSOLUTE AUTO 2.37 K/mm3 (0.84-5.20); LYMPHOCYTES PERCENT AUTO 23 % (21-46); MONOCYTES ABSOLUTE AUTO 0.95 K/mm3 (0.16-1.47); MONOCYTES PERCENT AUTO 9 % (4-13); Mean Corpuscular HGB 28.7 pg (26.0-34.0); Mean Corpuscular HGB Conc 31.2 g/dL (31.5-36.5); Mean Corpuscular Volume 92 fL (80-100); Mean Platelet Volume 11.3 fL (9.1-12.4); NEUTROPHILS ABSOLUTE AUTO 6.66 K/mm3 (1.96-9.15); NEUTROPHILS PERCENT AUTO 63 % (41-73); Platelet Count 283 K/mm3 (150-400); RDW Coefficient Variation 15.8 % (11.7-14.2); Red Blood Cell Count 3.69 M/mm3 (4.30-5.90); White Blood Cell Count 10.53 K/mm3 (4.00-11.30)
[2018-09-24 05:18] LABS: Alanine Aminotransfer (ALT/SGP 132 U/L (12-78); Albumin, Blood 2.8 g/dL (3.4-5.0); Albumin/Globulin Ratio 0.8 (0.8-1.8); Alk Phos 85 U/L (50-136); Anion Gap 8 mmol/L (6-16); Aspartate Aminotrans (AST/SGOT 105 U/L (12-37); Bilirubin, Total 0.5 mg/dL (0.1-1.0); Blood Urea Nitrogen 21 mg/dL (8-24); Bun/Creatinine Ratio 27.5 (12.0-20.0); CO2, Blood 28 mmol/L (21-32); Calcium, Blood 8.9 mg/dL (8.5-10.1); Chloride, Blood 106 mmol/L (98-108); Creatinine, Blood 0.76 mg/dL (0.60-1.20); Globulin, Blood 3.7 g/dL (2.2-4.0); Glomerular Filtration Rate >60 (60-); Glucose, Blood 121 mg/dL (70-99); Potassium, Blood 4.3 mmol/L (3.5-5.5); Sodium, Blood 142 mmol/L (136-145); Total Protein, Blood 6.5 g/dL (6.4-8.2)
--- NOTE | 2018-09-24 18:25 | NUR ---
SUMM- PT APHASIC, NODS YES AND NO TO QUESTIONS. DEPENDANT IN CARE, TURNED Q2 AND INCONT CARE. NYSTATIN CREAM TO HODAN RASH APPEARED MORE RED AT THE END OF SHIFT, ONLY CHANGE WAS USED CALAZYME, APPEARED A RED REACTION. WILL REPORT TO STAFF AND USE NYSTATIN AND BLUE TUBE MOISTURE BARRIER. PT TOLERATING TUBE FEEDS, RESIDUAL 30-60ML. ONCE RESIDUAL 150ML. PT MEDICATED ONCE FOR PAIN THIS AM AND SEEMED TO GIVE REIEIF. PT HAD 2-3 LG VERY SOFT BROWN STOOLS TODAY. IN TO VISIT FOR ABOUT 2 HOURS TODAY. ORAL CARE AND DEEP SUCTION TO AID IN CLEARING LG AMOUNT OF SECRETIONS PT UNABLE TO CLEAR, FREQ MOIST COUGH, AND YANKAUR ASSIST TO CLEAR FREQ. Q2 HRS APPROX. VSS. WILL REPORT TO NOCS.
[2018-09-25 05:23] LABS: BASOPHILS ABSOLUTE AUTO 0.11 K/mm3 (0.00-0.23); BASOPHILS PERCENT AUTO 1 % (0-2); EOSINOPHILS ABSOLUTE AUTO 0.28 K/mm3 (0.00-0.68); EOSINOPHILS PERCENT AUTO 2 % (0-6); Hematocrit 34.5 % (37.0-53.0); Hemoglobin 10.8 g/dL (13.5-17.5); IMMATURE GRAN ABSOLUTE AUTO 0.05 K/mm3 (0.00-0.10); IMMATURE GRAN PERCENT AUTO 0 % (0-1); LYMPHOCYTES ABSOLUTE AUTO 1.89 K/mm3 (0.84-5.20); LYMPHOCYTES PERCENT AUTO 16 % (21-46); MONOCYTES ABSOLUTE AUTO 1.11 K/mm3 (0.16-1.47); MONOCYTES PERCENT AUTO 10 % (4-13); Mean Corpuscular HGB 28.8 pg (26.0-34.0); Mean Corpuscular HGB Conc 31.3 g/dL (31.5-36.5); Mean Corpuscular Volume 92 fL (80-100); Mean Platelet Volume 11.2 fL (9.1-12.4); NEUTROPHILS ABSOLUTE AUTO 8.22 K/mm3 (1.96-9.15); NEUTROPHILS PERCENT AUTO 71 % (41-73); Platelet Count 297 K/mm3 (150-400); RDW Coefficient Variation 15.4 % (11.7-14.2); RDW Standard Deviation 51.4 fL (35.1-46.3); Red Blood Cell Count 3.75 M/mm3 (4.30-5.90); White Blood Cell Count 11.66 K/mm3 (4.00-11.30)
[2018-09-25 05:45] LABS: Alanine Aminotransfer (ALT/SGP 149 U/L (12-78); Albumin/Globulin Ratio 0.8 (0.8-1.8); Alk Phos 89 U/L (50-136); Anion Gap 6 mmol/L (6-16); Aspartate Aminotrans (AST/SGOT 95 U/L (12-37); Bilirubin, Total 0.7 mg/dL (0.1-1.0); Blood Urea Nitrogen 20 mg/dL (8-24); Bun/Creatinine Ratio 26.7 (12.0-20.0); CO2, Blood 28 mmol/L (21-32); Chloride, Blood 106 mmol/L (98-108); Creatinine, Blood 0.75 mg/dL (0.60-1.20); Globulin, Blood 3.8 g/dL (2.2-4.0); Glomerular Filtration Rate >60 (60-); Glucose, Blood 128 mg/dL (70-99); Potassium, Blood 4.2 mmol/L (3.5-5.5); Sodium, Blood 140 mmol/L (136-145); Total Protein, Blood 6.8 g/dL (6.4-8.2)
--- NOTE | 2018-09-25 07:44 | NUR ---
NOC SHIFT SUMMARY NO ACUTE CHANGES NOTED IN PT THIS NIGHT. VSS. ABLE TO NOD HEAD YES OR NO. ANSWERED QUESTIONS APPROPRIATLY. CONTINUES TO NEED SUCTION PRN. PT REPOSITIONED [id number]. DID NOT REQUIRE INSULIN COVERAGE THIS NIGHT. REPORT TO ONCOMING RN.
--- NOTE | 2018-09-25 16:27 | NUR ---
SUMMARY PT NONVERBAL, NODS YES/NO APPROP TO MOST SIMPLE QUESTIONS @ X'S INAPPROP. R SIDE CONTINUES FLACCID FORM RECENT CVA. 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 ST ORDER BARIUM SWALLOW STUDY HOWEVER PT UNSUCCESSFUL CONTINUES ON TUBE FEEDING VIA PEG. OT IN TO WORK WITH PT THIS AM, ASSIST TO SIT ON SIDE OF BED HOWEVER PT UNABLE TO HOLD HIMSELF UP. PT IN TO VISIT THIS AFTERNOON HOWEVER DR AUSTIN UNABLE TO COME BACK TO ROOM @ THIS TIME, STATE SHE WILL BE BACK IN AM BETWEEN 8-9 AM, DR NOTIFIED. VSS.
[2018-09-26 04:58] LABS: BASOPHILS ABSOLUTE AUTO 0.08 K/mm3 (0.00-0.23); BASOPHILS PERCENT AUTO 1 % (0-2); EOSINOPHILS ABSOLUTE AUTO 0.35 K/mm3 (0.00-0.68); EOSINOPHILS PERCENT AUTO 3 % (0-6); Hematocrit 32.6 % (37.0-53.0); Hemoglobin 10.2 g/dL (13.5-17.5); IMMATURE GRAN ABSOLUTE AUTO 0.04 K/mm3 (0.00-0.10); IMMATURE GRAN PERCENT AUTO 0 % (0-1); LYMPHOCYTES ABSOLUTE AUTO 1.49 K/mm3 (0.84-5.20); LYMPHOCYTES PERCENT AUTO 15 % (21-46); MONOCYTES ABSOLUTE AUTO 1.09 K/mm3 (0.16-1.47); MONOCYTES PERCENT AUTO 11 % (4-13); Mean Corpuscular HGB 28.6 pg (26.0-34.0); Mean Corpuscular HGB Conc 31.3 g/dL (31.5-36.5); Mean Corpuscular Volume 91 fL (80-100); Mean Platelet Volume 11.4 fL (9.1-12.4); NEUTROPHILS ABSOLUTE AUTO 7.14 K/mm3 (1.96-9.15); NEUTROPHILS PERCENT AUTO 70 % (41-73); Platelet Count 288 K/mm3 (150-400); RDW Coefficient Variation 15.6 % (11.7-14.2); RDW Standard Deviation 51.8 fL (35.1-46.3); Red Blood Cell Count 3.57 M/mm3 (4.30-5.90); White Blood Cell Count 10.19 K/mm3 (4.00-11.30)
[2018-09-26 05:16] LABS: Magnesium, Blood 1.9 mg/dL (1.6-2.4)
[2018-09-26 05:20] LABS: Alanine Aminotransfer (ALT/SGP 123 U/L (12-78); Albumin, Blood 2.9 g/dL (3.4-5.0); Albumin/Globulin Ratio 0.8 (0.8-1.8); Alk Phos 85 U/L (50-136); Anion Gap 6 mmol/L (6-16); Aspartate Aminotrans (AST/SGOT 59 U/L (12-37); Bilirubin, Total 0.6 mg/dL (0.1-1.0); Blood Urea Nitrogen 19 mg/dL (8-24); Bun/Creatinine Ratio 25.1 (12.0-20.0); CO2, Blood 28 mmol/L (21-32); Calcium, Blood 8.9 mg/dL (8.5-10.1); Chloride, Blood 105 mmol/L (98-108); Creatinine, Blood 0.76 mg/dL (0.60-1.20); Globulin, Blood 3.6 g/dL (2.2-4.0); Glomerular Filtration Rate >60 (60-); Glucose, Blood 159 mg/dL (70-99); Phosphorus, Blood 4.4 mg/dL (2.5-4.9); Potassium, Blood 4.4 mmol/L (3.5-5.5); Sodium, Blood 139 mmol/L (136-145); Total Protein, Blood 6.5 g/dL (6.4-8.2)
--- NOTE | 2018-09-26 06:44 | NUR ---
Rn summary: Pt did not open eyes or really respond to verbal stimuli at the beginning of the shift. He moans out when he has a BM. Groin, scrotum and rectal area are excoriated and red. Pt cleaned and nystatin cream and barrier cream is applied 3-4 times during the shift. Pt was alert and nods to questions after 0200 in the am. Pt states his abdomen hurts. He wants a pain pill. Medicated with [place] 1 via tube and pt is resting well. Pt had no feeding tube residule prior to meds or feeding this am. Pt receiving 480cc bolus feed over an hour and 15 minutes. Pt has rhonchi upper airway, unable to suction. Pt has minimal cough reflex, minimal gag reflex. HOB up to 50 degrees during feeding this am. Frequent monitoring.
--- NOTE | 2018-09-26 15:34 | NUR ---
SUMMARY DR WELSH IN THIS AM TO MEET WITH PT'S , DISCUSS FUTURE PLAN. SHE DECIDE ON HOME WITH HOSPICE, DR CRUMP D/C ORDERS HOWEVER STATE D/C WILL NOT HAPPEN UNTIL TOMORROW IN ORDER TO ALLOW TIME TO PREPARE HOME. PT CONTINUES NONVERBAL, NODS YES/NO TO SIMPLE QUESTIONS. R SIDE FLACCID, R ARM EDEMATOUS. L SIDED WEAKNESS, L HAND CONTRACTED, GROSS MOVEMENT OF L ARM/L LEG. PEG TUBE INSERT SITE CONTINUES TO OOZE BLOOD, SURGEON AWARE PER , STATES TOLD HER OOZING R/T BLOOD THINNER, MAY CONTINUE FOR WEEKS. DR AUSTIN ORDER DRSG CHANGES DAILY. TF CONTINUES/ORDER, 1400 FEED/FLUSH HELD D/T RESIDUAL >150 ML. PT REQUIRES FREQUENT ATTENDS CHANGES, INCONT BOWEL & URINE MULT X'S TODAY. REQUIRES HOB ELEVATED & FREQUENT POSITION CHANGES. ORAL SX PRN D/T INABILITY TO CLEAR SECRETIONS. HE HAD GOOD PARTICIPATION WITH OCCTHER TODAY. VSS.
--- NOTE | 2018-09-27 05:37 | NUR ---
SHIFT SUMMARY PT SLEPT FAIR, NO ACUTE EVENTS OVER NIGHT. DRAIN SPONGE AROUND PEG TUBE CHANGED X2 DUE TO BLOODY DRAINAGE. MEDICATED X1 FOR PAIN. PT POINTING TO PEG TUBE AND NODDING YES WHEN ASKED IF HE WAS HAVING PAIN THERE. WILL CONTINUE TO MONITOR.
[2018-09-27] MEDS ORDERED: MORP20L PT (12:43)
--- NOTE | 2018-09-27 13:57 | NUR ---
PT. DISCHGARGED HOME ON HOSPICE VIA [facility]. CALLED SPOUSE AND HOSPICE AND WENT OVER PT'S DISCHARGE ORDERS.
== END 2018-09-27 13:58 | disposition hospice, home (50) | DRG 64 ==
LOC: ER 14:08 → MEDS 17:30 → ER 18:50 → MEDS 18:50 → ICUE 09-07 03:00 → MEDS 09-07 12:04 → EDPENDDIS 09-21 11:55 → ENPENDDIS 09-21 11:55 → MEDS 09-27 13:58
PROVIDERS: Family Medicine; Hospitalist; Internal Medicine; Internal Medicine Endocrinology, Diabetes & Metabolism; Internal Medicine Gastroenterology; Physician Assistant; Student in an Organized Health Care Education/Training Program; Surgery; ADMIT Family Medicine
PROC: 0DH63UZ Insertion of Feeding Device into Stomach, Percutaneous Approach (ICD-10-PCS; principal; 2018-09-13 10:00)
DX: I63.9 Cerebral infarction, unspecified (principal); J69.0 Pneumonitis due to inhalation of food and vomit; G81.01 Flaccid hemiplegia affecting right dominant side; I42.0 Dilated cardiomyopathy; R41.4 Neurologic neglect syndrome; I50.22 Chronic systolic (congestive) heart failure; R47.01 Aphasia; I25.5 Ischemic cardiomyopathy; I48.2 Chronic atrial fibrillation; I10 Essential (primary) hypertension; E11.51 Type 2 diabetes mellitus with diabetic peripheral angiopathy without gangrene; E11.65 Type 2 diabetes mellitus with hyperglycemia; R77.8 Other specified abnormalities of plasma proteins; E86.0 Dehydration; K21.9 Gastro-esophageal reflux disease without esophagitis; F32.9 Major depressive disorder, single episode, unspecified; I35.0 Nonrheumatic aortic (valve) stenosis; F10.21 Alcohol dependence, in remission; E78.5 Hyperlipidemia, unspecified; R13.19 Other dysphagia; M19.012 Primary osteoarthritis, left shoulder; M19.011 Primary osteoarthritis, right shoulder; Z95.0 Presence of cardiac pacemaker; Z88.5 Allergy status to narcotic agent; Z79.84 Long term (current) use of oral hypoglycemic drugs; Z79.02 Long term (current) use of antithrombotics/antiplatelets; Z79.82 Long term (current) use of aspirin; Z79.899 Other long term (current) drug therapy
CPT/HCPCS: 36415; 51701; 70450; 71045; 71046; 74177; 74230; 80048; 80053; 80069; 82550; 82553; 82947; 83735; 83880; 84100; 84484; 85025; 85027; 85610; 87507; 92526; 92610; 92611; 93005; 93010; 93306; 93880; 96374-59; 97110; 97112; 97162; 97166; 97530; 97535; 99285-25; A9270-GY; C1769; C9113; J0696; J1650; J1815; J2704; J3010; J7030; J7050; J7120; Q9967